=== PATIENT | male | born 1940 | race Caucasian/White ===

== ENCOUNTER 2017-07-30 21:54 | Emergency (ER) | payer MEDICARE, BC | END 2017-07-31 00:01 | disposition home or self-care (01) | LOC: ERS 21:54 | DX: I10 Essential (primary) hypertension (principal); E78.5 Hyperlipidemia, unspecified; Z87.01 Personal history of pneumonia (recurrent) | CPT/HCPCS: 99283 ==

== ENCOUNTER 2017-09-11 13:21 | Outpatient (CLI) | payer MEDICARE, BC ==
[2017-09-11 14:49] LABS: Anion Gap 16 mmol/L (10-20); BUN (Urea Nitrogen) 22 mg/dL (8.4-25.7); Calc. Creatinine Clearance 0 mL/min (70-130); Calcium 9.9 mg/dL (7.8-10.44); Carbon Dioxide 28 mmol/L (23-31); Chloride 99 mmol/L (98-107); Estimated GFR-MDRD 63; Glucose 95 mg/dL (83-110); Sodium 139 mmol/L (136-145)
[2017-09-11 15:01] LABS: Bilirubin Negative (Negative); Blood, Urine Small (Negative); Clarity Clear (Clear); Glucose, Urine (Dipstick) Negative (Negative); Leukocyte Negative (Negative); Nitrite Negative (Negative); Protein, Urine (Dipstick) Negative (Neg-Trace); Specific Gravity, Urine 1.015 (1.005-1.030); Urobilinogen 0.2 mg/dL (0.2-1.0)
[2017-09-11 15:07] LABS: RBC/HPF 0-3 HPF (0-3); Squamous Epithelial 0-3 HPF (0-3); WBC/HPF 0-3 HPF (0-3)
--- NOTE | 2017-09-11 15:52 | CT ---
CT ABDOMEN WITH AND WITHOUT IV CONTRAST: INDICATIONS: History of right renal mass. COMPARISON: 11/07/2016 and 02/20/2017 FINDINGS: The solid mass lesion involving the anterolateral aspect of the right mid kidney has enlarged, now me asuring 2 x 1.7 cm, whereas, on the initial examination, the lesion measured up to 1 x 1.1 cm. There is a stable, 1.7 cm cyst involving the inferior pole of the right kidney. There are multiple small cysts involving the liver. The pancreas, spleen, and adrenal glands are nor mal appearing. There are moderate calcifications involving the abdominal aorta. There is a fat-cont aining periumbilical hernia. There is scattered degenerative and osteoarthritic change. No definite acute osseous abnormality is evident. IMPRESSION: 1. Enlarging solid renal mass lesion of the right kidney. 2. Stable renal cyst and hepatic cyst. POS: [facility]
== END 2017-09-11 13:22 | disposition home or self-care (01) ==
LOC: SCSCT 13:21
PROVIDERS: ATTEND Urology
DX: R31.29 Other microscopic hematuria (principal); N28.1 Cyst of kidney, acquired; N28.89 Other specified disorders of kidney and ureter; K76.89 Other specified diseases of liver
CPT/HCPCS: 36415; 74170; 80048; 81003; 81015; 87086

== ENCOUNTER 2019-10-14 07:11 | Observation (INO) | payer MEDICARE, BC ==
--- NOTE | 2019-10-14 08:14 | RAD ---
XR Chest Pa Lat STANDARD HISTORY: Wheezing COMPARISON: 05/30/2016 FINDINGS: The heart size is at upper limits of normal. The aorta is tortuous. The lungs are well expa nded without focal areas of consolidation, pneumothorax or pleural effusions. IMPRESSION: No radiographic evidence of acute cardiopulmonary process.
[2019-10-14] MEDS ORDERED: Dexamethasone 10 MG/ML VIAL ONE (08:48)
[2019-10-14 10:57] LABS: Bacteria/HPF None Seen HPF (None Seen); Bilirubin Negative (Negative); Blood, Urine 2+ (Negative); Clarity Clear (Clear); Glucose, Urine (Dipstick) Normal (Negative); Leukocyte Negative Leu/uL (Negative); Nitrite Negative (Negative); Protein, Urine (Dipstick) 30 mg/dL (Neg-Trace); RBC/HPF 0-3 HPF (0-3); Squamous Epithelial None Seen HPF (0-3); Urobilinogen Normal mg/dL (Less than 2); WBC/HPF None Seen HPF (0-3)
[2019-10-14 11:56] LABS: Band 8 % (5-11); Hemoglobin 14.8 g/dL (14.0-18.0); Large Platelets MODERATE; Lymphocytes 4 % (21-51); MDiff Complete? YES; Mean Corpuscular HGB CONC 33.5 g/dL (32.0-36.0); Mean Corpuscular Hemoglobin 31.3 pg (27.0-31.0); Mean Corpuscular Volume 93.4 fL (78.0-98.0); Mean Platelet Volume 12.4 fL (7.4-10.4); Monocytes 2 % (0-10); Neutrophil 86 % (42-75); Platelet Clumps MARKED; Platelet Morphology Comment PLT clumps seen-ADEQ; RBC Distribution Width 12.6 % (11.5-14.5); RBC Morphology Normal; Red Blood Cell (RBC) Count 4.74 mill/uL (4.70-6.10); White Blood Cell (WBC) Count 18.2 thou/uL (4.8-10.8)
[2019-10-14 12:21] LABS: CKMB 2.8 ng/mL (0-6.6)
[2019-10-14] MEDS ORDERED: Azithromycin 500 MG VIAL ONE (12:30)
[2019-10-14] MEDS ORDERED: cefTRIAXone\\ROCEPHIN 1 GM VIAL ONE (12:30)
[2019-10-14 12:38] LABS: ALT (SGPT) 19 U/L (8-55); AST (SGOT) 22 U/L (5-34); Albumin 4.5 g/dL (3.4-4.8); Alkaline Phosphatase 83 U/L (40-110); Anion Gap 14 mmol/L (10-20); BUN (Urea Nitrogen) 21 mg/dL (8.4-25.7); Bilirubin, Total 0.7 mg/dL (0.2-1.2); Calc. Creatinine Clearance 0 mL/min (70-130); Calcium 9.6 mg/dL (7.8-10.44); Carbon Dioxide 25 mmol/L (23-31); Chloride 103 mmol/L (98-107); Estimated GFR-MDRD 53; Globulin 2.9 g/dL (2.4-3.5); Glucose 147 mg/dL (83-110); Potassium 4.3 mmol/L (3.5-5.1); Protein, Total 7.4 g/dL (5.8-8.1); Sodium 138 mmol/L (136-145)
--- NOTE | 2019-10-14 13:20 | RAD ---
XR Neck Soft Tissue History: Wheezing Comparison: None. Findings: Prevertebral soft tissues are unremarkable. No radiopaque foreign object. Epiglottis appear s normal as well as the aryepiglottic folds. Impression: Normal appearance of the prevertebral soft tissues.
[2019-10-14 16:15] VITALS: BMI 31.6
[2019-10-14 16:22] LABS: Troponin I 0.112 ng/mL (< 0.028)
[2019-10-14] MEDS ORDERED: Aspirin 81 mg Enteric Coated Tablet PO SCH (17:00)
[2019-10-14 18:00] LABS: #Lymphocytes 0.5 thou/uL (1.20-3.40); #Monocytes 0.2 thou/uL (0.11-0.59); #Neutrophils 14.4 thou/uL (1.40-6.50); %Eosinophils 0.1 % (0.0-10.0); %Lymphocytes 3.3 % (21.0-51.0); %Neutrophils 95.6 % (42.0-75.0); Hemoglobin 14.3 g/dL (14.0-18.0); Mean Corpuscular HGB CONC 33.2 g/dL (32.0-36.0); Mean Corpuscular Hemoglobin 31.5 pg (27.0-31.0); Mean Corpuscular Volume 94.6 fL (78.0-98.0); Mean Platelet Volume 8.8 fL (7.4-10.4); Platelet Count 241 thou/uL (130-400); RBC Distribution Width 12.2 % (11.5-14.5); Red Blood Cell (RBC) Count 4.55 mill/uL (4.70-6.10); White Blood Cell (WBC) Count 15.1 thou/uL (4.8-10.8)
[2019-10-14 18:27] LABS: Troponin I 0.102 ng/mL (< 0.028)
[2019-10-14] MEDS ORDERED: Atorvastatin Calcium 20 MG TAB PO SCH (21:00)
[2019-10-14] MEDS: Amoxicillin/Potassium Clav 875 MG TAB PO SCH (21:32)
[2019-10-15] MEDS ORDERED: Cepastat Lozenges 1 LOZ PO PRN (00:25)
--- NOTE | 2019-10-15 03:34 | HP ---
CHIEF COMPLAINT: Shortness of breath. HISTORY OF PRESENT ILLNESS: Patient is a 79-year-old male, who states that he woke up around 3:00 a.m. today. He felt very short of breath. Patient states that he uses a CPAP machine, which possibly could be causing some of the issues with his shortness of breath. He states that he normally has sinus drainage which has been going on for the past couple of days and he feels that using the CPAP does not help the situation. He states that also he has been having some sore throat for the past couple of days also. He denies any fevers or chills at home. He initially came into the ER. At this time, he was given some steroids and neb treatments. He felt significantly better. He was admitted to the hospital for elevated WBCs and also elevated troponins. PAST MEDICAL HISTORY: Patient has a history of vocal cord paralysis. He stated that he went to the ENT, , and was told that most likely secondary to post flu related. He has history of hypertension. He also has a renal lesion on his right kidney, which he is following up with MD Null. He also has sleep apnea. PAST SURGICAL HISTORY: He has had a colonoscopy and he has had Achilles tendon repair. REVIEW OF SYSTEMS: All negative, except for the ones mentioned above in the HPI. PHYSICAL EXAMINATION: VITAL SIGNS: Temperature 98.2, 70, 134/60, 18, and 94% on room air. GENERAL: He is awake, alert, and oriented x3. Does not appear in distress. CV: S1, S2 present. No murmurs, rubs, or gallops. LUNGS: Clear to auscultation. No rhonchi or wheezes noted. ABDOMEN: Soft and nontender. Bowel sounds are present x2. EXTREMITIES: He does have +1 lower extremity edema. Pedal pulses are present x2. NEUROVASCULAR: No focal deficits noted. SKIN: No cuts, lesions, or bruises noted. SOCIAL HISTORY: He denies any smoking history. Occasional drinking history. No drug use. He is a full code. Lives with his family. FAMILY HISTORY: Mother had of Parkinson's. Father had dementia. ALLERGIES: HE IS ALLERGIC TO CODEINE AND CONTRAST. MEDICATIONS: As of the followin. He is on amlodipine 5 mg daily. 2. Aspirin 81 mg daily. 3. Lipitor 20 mg daily. LABORATORY RESULTS: As of the following; WBCs of 18.2, hemoglobin of 14.8, and his platelets initially was very high with significant amount of clumping. His chemistry; sodium of 138, potassium of 4.3, BUN of 21, and creatinine 1.31. His troponins were mildly elevated at 0.041, 0.112, and 0.102. He also had a soft tissue neck x-ray and a chest x-ray. His chest x-ray did not indicate any acute abnormalities and his soft tissue x-ray indicated no appearance of paravertebral soft tissue. ASSESSMENT AND PLAN: Patient is a very pleasant 79-year-old male, who presents to the hospital with shortness of breath. 1. Sinusitis, possible this could be viral versus bacterial. He states that he has had sinus infections in the past. His shortness of breath was very brief. He woke up in the morning with shortness of breath. He felt that his shortness of breath could be exacerbated with a CPAP since he has been having significant amount of sinus drainage, which has been worsening as he is using the CPAP at night. I will go ahead and put him on antibiotics to cover for sinusitis. We will put him on some steroids and also breathing treatments seem to help him. He states that his voice is a little bit more raspy than usual. We will continue to monitor. 2. Elevated troponins. The patient states he does not have any heart conditions. He does not have shortness of breath or chest pain. EKG did not show any acute ST changes or T wave changes. I have ordered an echocardiogram and patient does not want to stay. He states that he wants to leave tomorrow before noon. 3. Elevated thrombocytosis. This has resolved. He did have significant clumping of the platelets, which was unclear. However, on repeat CBC, it appears to be normal. 4. Acute kidney injury. Patient's previous creatinine appeared to be normal. We will continue to monitor. 5. Deep venous thrombosis prophylaxis. We will put patient on SCDs. Job ID: [id number]
[2019-10-15 04:29] LABS: #Lymphocytes 0.7 thou/uL (1.20-3.40); #Monocytes 1.6 thou/uL (0.11-0.59); #Neutrophils 15.9 thou/uL (1.40-6.50); %Eosinophils 0.2 % (0.0-10.0); %Lymphocytes 3.8 % (21.0-51.0); %Monocytes 8.7 % (0.0-10.0); %Neutrophils 87.4 % (42.0-75.0); Hemoglobin 13.5 g/dL (14.0-18.0); Mean Corpuscular HGB CONC 32.8 g/dL (32.0-36.0); Mean Corpuscular Hemoglobin 31.1 pg (27.0-31.0); Mean Corpuscular Volume 94.9 fL (78.0-98.0); Mean Platelet Volume 9.3 fL (7.4-10.4); Platelet Count 237 thou/uL (130-400); RBC Distribution Width 12.4 % (11.5-14.5); Red Blood Cell (RBC) Count 4.34 mill/uL (4.70-6.10); White Blood Cell (WBC) Count 18.2 thou/uL (4.8-10.8)
[2019-10-15] MEDS ORDERED: predniSONE 20 MG TAB PO SCH (08:00)
[2019-10-15] MEDS ORDERED: Aspirin 81 mg Enteric Coated Tablet PO SCH (09:00)
[2019-10-15] MEDS ORDERED: Hydrochlorothiazide 25 MG TAB PO SCH (09:00)
[2019-10-15] MEDS ORDERED: Losartan 25 MG TAB PO SCH (09:00)
[2019-10-15] MEDS ORDERED: Enoxaparin Sodium 40 MG/0.4 ML SYRINGE SC SCH (09:00)
[2019-10-15 09:23] LABS: Anion Gap 18 mmol/L (10-20); BUN (Urea Nitrogen) 29 mg/dL (8.4-25.7); Calc. Creatinine Clearance 62 mL/min (70-130); Calcium 9.4 mg/dL (7.8-10.44); Carbon Dioxide 25 mmol/L (23-31); Chloride 102 mmol/L (98-107); Estimated GFR-MDRD 46; Glucose 128 mg/dL (83-110); Potassium 4.2 mmol/L (3.5-5.1); Sodium 141 mmol/L (136-145)
[2019-10-15 09:44] VITALS: BP 126/58; TEMP 97.7
[2019-10-15] MEDS: Amoxicillin/Potassium Clav 875 MG TAB PO SCH (09:45)
--- NOTE | 2019-10-16 03:38 | DIS ---
DATE OF ADMISSION: 10/14/2019 DATE OF DISCHARGE: 10/15/2019 PRIMARY CARE PROVIDER: Dr. Mi Somers. DISCHARGE DIAGNOSES: 1. Sinusitis. 2. Acute kidney injury. 3. Reactive airway disease. 4. Owv-AN-ietsbwvrr myocardial infarction type 2, secondary to sinusitis and reactive airway disease. HOSPITAL COURSE: Mr. Mitchell is a pleasant 79-year-old gentleman, who was admitted to [facility] on 10/14/2019, for sinusitis and acute kidney injury. Please refer to Dr. Smith's history and physical note dated 10/14/2019, for further details. He improved with Augmentin and prednisone. He wished to go home by noon on 10/15/2019. His creatinine increased to 1.49 on 10/14. He has been advised to discontinue losartan and to follow up with primary care provider as to when to resume it. He has an appointment with primary care provider on 10/16/2019, and will follow up with primary care provider. He had mildly elevated troponins, but no chest pain. 2D echocardiogram was done and the result is pending at the time of this dictation. The patient does not wish to stay in the hospital for the 2D echocardiogram report. He has been advised to follow up with his primary care provider for the report and with his account technician, Dr. Ayoub regarding the elevated troponins in case further workup is warranted. On the day of discharge, he has sodium 141, potassium 4.2, blood urea nitrogen 29, and creatinine 1.49. White count is 18,200, hemoglobin 13.5, and platelet count 237. DISCHARGE MEDICATIONS: 1. Aspirin 81 mg daily. 2. Lipitor 20 mg at bedtime. 3. Hydrochlorothiazide 25 mg daily. 4. Augmentin 875 mg 2 times a day for 1 week. 5. Prednisone 40 mg daily for 4 more days. ACTIVITY: No restrictions. DIET: Heart healthy. DISCHARGE DESTINATION: Home. POST-ACUTE CARE FOLLOWUP: With primary care provider in 1 day and with his account technician in 1 week. Job ID: [id number]
== END 2019-10-15 11:10 | disposition home or self-care (01) ==
LOC: ERS 07:11 → ERHOLD 13:56 → 2NO 15:54
PROVIDERS: ADMIT Internal Medicine; ATTEND Internal Medicine
DX: J32.9 Chronic sinusitis, unspecified (principal); N17.9 Acute kidney failure, unspecified; I21.A1 Myocardial infarction type 2; J45.909 Unspecified asthma, uncomplicated; D47.3 Essential (hemorrhagic) thrombocythemia; R79.89 Other specified abnormal findings of blood chemistry; Z79.82 Long term (current) use of aspirin; Z79.899 Other long term (current) drug therapy; Z98.890 Other specified postprocedural states; Z88.5 Allergy status to narcotic agent; Z91.041 Radiographic dye allergy status
CPT/HCPCS: 70360; 71046; 80048; 80053; 82553; 83880; 84484 ×2; 85025 ×3; 87040; 87633; 87798 ×2; 93005; 93306; 94640 ×2; 96365; 96367; 96372; 99285; G0378 ×3; 36415; 81003; 81015; 93010; J0456; J0696; J1100; J7512; J7620

== ENCOUNTER 2019-10-21 17:15 | Inpatient (IN) | payer MEDICARE, BC ==
[2019-10-21 18:35] LABS: Hemoglobin 15.3 g/dL (14.0-18.0); Mean Corpuscular HGB CONC 33.1 g/dL (32.0-36.0); Mean Corpuscular Hemoglobin 31.4 pg (27.0-31.0); Mean Corpuscular Volume 94.8 fL (78.0-98.0); Mean Platelet Volume 9.1 fL (7.4-10.4); Platelet Count 249 thou/uL (130-400); RBC Distribution Width 12.3 % (11.5-14.5); Red Blood Cell (RBC) Count 4.86 mill/uL (4.70-6.10); White Blood Cell (WBC) Count 27.5 thou/uL (4.8-10.8)
--- NOTE | 2019-10-21 18:48 | RAD ---
TWO VIEW CHEST: Indications: Cough Comparison: 10-14-2019 FINDINGS: There are bibasilar infiltrates, slightly more extensive in the left lower lobe, best seen through th e cardiac silhouette on the frontal view. Right medial base infiltrate also noted on the frontal view . Upper lung zones are clear. Vascular markings normal. Heart and mediastinum unremarkable. IMPRESSION: Bibasilar infiltrates, more prominent on the left. POS: [facility]
[2019-10-21 18:50] LABS: ALT (SGPT) 26 U/L (8-55); AST (SGOT) 20 U/L (5-34); Albumin 3.8 g/dL (3.4-4.8); Alkaline Phosphatase 62 U/L (40-110); Anion Gap 10 mmol/L (10-20); BUN (Urea Nitrogen) 25 mg/dL (8.4-25.7); Bilirubin, Total 1.2 mg/dL (0.2-1.2); Calc. Creatinine Clearance 0 mL/min (70-130); Calcium 9.6 mg/dL (7.8-10.44); Carbon Dioxide 31 mmol/L (23-31); Chloride 99 mmol/L (98-107); Estimated GFR-MDRD 53; Globulin 2.9 g/dL (2.4-3.5); Glucose 111 mg/dL (83-110); Potassium 3.9 mmol/L (3.5-5.1); Protein, Total 6.7 g/dL (5.8-8.1); Sodium 136 mmol/L (136-145)
[2019-10-21 18:58] LABS: Band 45 % (5-11); Lymphocytes 1 % (21-51); MDiff Complete? YES; Monocytes 7 % (0-10); Neutrophil 45 % (42-75); Platelet Morphology Comment Appears Adequate; Polychromasia SLIGHT = 2-3 cells (100X) (0-2/hpf); Reactive Lymphocytes 2 % (0-10)
[2019-10-21 19:12] LABS: CKMB 4.4 ng/mL (0-6.6)
[2019-10-21] MEDS ORDERED: Azithromycin 500 MG VIAL ONE (19:38)
[2019-10-21] MEDS ORDERED: cefTRIAXone\\ROCEPHIN 2 GM VIAL ONE (19:38)
[2019-10-21] MEDS ORDERED: Benzonatate 100 MG CAP ONE (20:39)
[2019-10-21 22:02] LABS: Troponin I 0.119 ng/mL (< 0.028)
[2019-10-21 22:13] LABS: Bacteria/HPF None Seen HPF (None Seen); Bilirubin Negative (Negative); Blood, Urine 1+ (Negative); Clarity Clear (Clear); Glucose, Urine (Dipstick) Normal (Negative); Leukocyte Negative Leu/uL (Negative); Nitrite Negative (Negative); Protein, Urine (Dipstick) 20 mg/dL (Neg-Trace); RBC/HPF 0-3 HPF (0-3); Squamous Epithelial None Seen HPF (0-3); Urobilinogen Normal mg/dL (Less than 2); WBC/HPF 0-3 HPF (0-3)
[2019-10-21] MEDS ORDERED: Ondansetron ODT 4 MG TAB PO PRN (23:11)
[2019-10-21] MEDS ORDERED: hydrALAZINE 20 MG/ML VIAL SLOW IVP PRN (23:11)
[2019-10-21] MEDS ORDERED: Acetaminophen 325 MG TAB PO PRN (23:11)
[2019-10-21] MEDS ORDERED: Benzonatate 100 MG CAP PO PRN (23:11)
[2019-10-21] MEDS ORDERED: Acetaminophen 325 MG TAB ONE (23:30)
[2019-10-22 01:11] LABS: Troponin I 0.168 ng/mL (< 0.028)
--- NOTE | 2019-10-22 01:37 | HP ---
PRIMARY CARE PHYSICIAN: Dr. Somers. CHIEF COMPLAINT: Cough and not feeling well. HISTORY OF PRESENT ILLNESS: Mr. Mitchell is a pleasant 79-year-old gentleman, who recently started having some cough and shortness of breath. This was about a week ago on Monday. At that time, he had seen his primary care physician who had prescribed him Augmentin. However, he ended up in the hospital in the interim where he had some chest pain and apparently had a day of the Augmentin prior to coming to the hospital. He was in the hospital for just 1 day. He started feeling better and had approximately 2 more days of the antibiotics, went home feeling well. Apparently, he lost the pills and was not able to finish the antibiotics, but a day after leaving the hospital on Monday and Monday, he started not feeling well again. He started coughing a lot and started having phlegm productive of some creamy like color. He started feeling short of breath again, but no nausea, no vomiting. No fever that he knows of at home. There has been no foreign travel or any sick contacts. He does have vocal cord paralysis, which he says he has been living with since 1967. He is not sure, if he has any difficulty swallowing, but his voice is audibly raspy and at times he will have to breathe deeply in order to speak. He tells me he has had no formal speech evaluation that he is aware of. REVIEW OF SYSTEMS: All systems were reviewed and are negative except for that mentioned in the history of present illness. PAST MEDICAL HISTORY: Significant for vocal cord paralysis, hypertension, a right kidney lesion that is being followed at [facility], and elevated cholesterol. PAST SURGICAL HISTORY: He has had a colonoscopy, Achilles tendon repair. ALLERGIES: TO CODEINE, IODINE AND CONTRAST. SOCIAL HISTORY: He is for 57 years. Code status is full code. He is a nonsmoker. He occasionally drinks. FAMILY HISTORY: Significant for Parkinson's in his mother and father who had dementia. CURRENT MEDICATIONS: Include: 1. Amlodipine 5 mg daily. 2. Aspirin 81 mg daily. 3. Lipitor 20 mg daily. 4. Losartan/hydrochlorothiazide 100/12.5 daily. PHYSICAL EXAMINATION: GENERAL: He is alert and oriented. He appears to be in no acute distress. He is sitting up on the stretcher. He is well developed and well nourished. VITAL SIGNS: Blood pressure was 136/72, heart rate 75, respiratory rate of 20, temperature was 99.1. HEENT: Pupils are equal, round, and reactive. Extraocular muscles are intact. Sclerae anicteric. Throat, no erythema, no exudates. NECK: No adenopathy, no bruits. LUNGS: He has bilateral wheezing and rhonchi and some decreased breath sounds at the bases. CARDIOVASCULAR: He has a normal S1 and S2. There is no S3 or S4. He does have an occasional PVC. No murmurs or rubs. ABDOMEN: Soft, nontender, and nondistended. Positive for bowel sounds. No rebound or guarding. EXTREMITIES: He has pedal edema to about a quarter the way up his calf. No calf tenderness. No joint effusions. NEUROLOGIC: The exam is grossly nonfocal. SKIN AND INTEGUMENT: There are no skin changes. No rash. He does have some chronic venous stasis changes however. LABORATORY DATA: The white blood cell count is 27.5, the hemoglobin is 15.3, hematocrit is 46.1, and platelet count is 249. Sodium 136, potassium 3.9, chloride , CO2 is 31, BUN of 25, creatinine 1.32, glucose is 111. Troponin is 0.159. Urinalysis is essentially negative. IMAGING: On his chest x-ray, the heart size is borderline. He does have bilateral basilar infiltrates that is by my reading on his EKG. He is sinus, the rate is 69. He has poor R-wave progression in V1 and V2, Q-wave in lead III. ASSESSMENT: This is a pleasant 79-year-old gentleman, who presents with cough and shortness of breath. He was also hypoxic and required supplemental oxygen in the ER, which is not usual for him. He has a vocal cord paralysis and it appears as if this problem has been off and on for the past week or longer. I suspect he could potentially have difficulty with swallowing and this could possibly be an aspiration pneumonia. He will be admitted to the [facility] due to the bilateral nature of the pneumonia. We will start him on IV Zosyn as well as vancomycin. We will consult speech therapy and place him on supplemental oxygen and DuoNebs as needed. 1. Hypertension. We will reconcile and restart his home medications. 2. The patient will be placed on deep venous thrombosis and gastrointestinal prophylaxis. 3. Elevated troponin. I suspect this is demand related. He had a recent stress test and has recently been evaluated by Cardiology and his stress test was normal. The echo results were noted. It did demonstrate that he did have some diastolic dysfunction. Job ID: [id number]
[2019-10-22] MEDS: Piperacillin/Tazobactam 3.375 GM in Sodium Chloride 0.9% 100 ML IVPB SCH ×4 (02:43→20:41)
[2019-10-22] MEDS: Vancomycin 1 GM in Premix Bag 1 BAG IVPB SCH ×2 (03:13→14:43)
[2019-10-22 04:38] LABS: Anion Gap 14 mmol/L (10-20); BUN (Urea Nitrogen) 27 mg/dL (8.4-25.7); Calc. Creatinine Clearance 68 mL/min (70-130); Calcium 8.9 mg/dL (7.8-10.44); Carbon Dioxide 27 mmol/L (23-31); Chloride 101 mmol/L (98-107); Estimated GFR-MDRD 52; Glucose 123 mg/dL (83-110); Sodium 138 mmol/L (136-145)
[2019-10-22 05:43] LABS: Band 43 % (5-11); Hemoglobin 13.8 g/dL (14.0-18.0); Lymphocytes 1 % (21-51); MDiff Complete? YES; Mean Corpuscular HGB CONC 32.2 g/dL (32.0-36.0); Mean Corpuscular Hemoglobin 30.8 pg (27.0-31.0); Mean Corpuscular Volume 95.5 fL (78.0-98.0); Mean Platelet Volume 9.2 fL (7.4-10.4); Monocytes 4 % (0-10); Neutrophil 52 % (42-75); Platelet Count 201 thou/uL (130-400); RBC Distribution Width 12.4 % (11.5-14.5); Red Blood Cell (RBC) Count 4.48 mill/uL (4.70-6.10); White Blood Cell (WBC) Count 28.5 thou/uL (4.8-10.8)
[2019-10-22] MEDS: Enoxaparin Sodium 40 MG/0.4 ML SYRINGE SC SCH (09:25)
[2019-10-22] MEDS: Aspirin Chewable 81 MG TAB PO SCH (09:26)
[2019-10-22] MEDS: Famotidine 20 MG TAB PO SCH ×2 (09:26→20:42)
[2019-10-22] MEDS: Losartan 25 MG TAB PO SCH (09:27)
--- NOTE | 2019-10-22 14:25 | CT ---
CT OF THE THORAX WITHOUT IV CONTRAST INDICATION: History of bilateral pneumonia and history of chronic aspiration COMPARISON: CT the abdomen dated September 11, 2017 FINDINGS: LUNGS: There is bibasilar airspace consolidation, left greater than right. There is mild airspace con solidation within the medial right middle lobe. Mild subsegmental volume loss is seen within the lingula. Small pulmonary cyst is seen within this right upper lobe measuring 1.2 cm. Pleural spaces: Clear Lymph nodes: No pathologically enlarged lymph nodes. Heart and great vessels: There are coronary artery and thoracic aortic calcifications Upper abdomen: There is a small hiatal hernia. There are small cysts seen within the liver. There is a small gallstone within the gallbladder neck. Osseous structures: No acute osseous abnormality. IMPRESSION: 1. Bibasilar airspace consolidation, left greater than right. Airspace consolidation is present withi n both lower lobes as well as within the medial right middle lobe. Certainly this can be seen with an aspiration pneumonitis; however, multifocal pneumonia is favored. 2. Small hiatal hernia. 3. Hepatic cysts 4. Cholelithiasis
[2019-10-22] MEDS ORDERED: Fluconazole 100 MG TAB PO SCH (14:30)
[2019-10-22] MEDS ORDERED: Furosemide 40 MG/4 ML VIAL SLOW IVP SCH (14:30)
--- NOTE | 2019-10-22 15:01 | CON ---
DATE OF CONSULTATION: 10/22/2019 SERVICE: Pulmonary Medicine. REASON FOR CONSULTATION: IMCU patient. HISTORY OF PRESENT ILLNESS: The patient is a very pleasant 79-year-old white male with past medical history significant for bilateral vocal cord paralysis, and oropharyngeal dysphagia with proven aspiration with multiple consistencies. He likes having a diet, does not modify his diet when he gets home. He was recently in the hospital with a community-acquired pneumonia. He was placed on some antibiotics and had a significant improvement in symptoms over a period of 3 to 4 days. He was discharged in his usual state of health, but over a period of 24 hours after getting home, he started having increasing difficulty breathing. He has sleep apnea and uses CPAP machine. He started coughing up increasing amounts of aponte and yellow phlegm. He returned to the Emergency Department for additional evaluation and studies. Overnight, he feels much improved. He denies any fevers, chills, nausea, or vomiting at this moment. ASSESSMENT: 1. Hypertension. 2. Dyslipidemia. 3. Vocal cord paralysis, bilateral. 4. Kidney lesion, followed with serial CT scans. PAST SURGICAL HISTORY: 1. Colonoscopy. 2. Achilles tendon repair. SOCIAL HISTORY: Negative for alcohol, tobacco, or illicit drug use. He is a lifelong nonsmoker. He has no exposure to chemicals, dust, asbestos, or tuberculosis. FAMILY HISTORY: Noncontributory. ALLERGIES: CODEINE, IODINE CONTRAST. MEDICATIONS: List of his inpatient medications was reviewed. REVIEW OF SYSTEMS: General, head, ears, eyes, nose, throat, cardiovascular, respiratory, GI, , musculoskeletal, neurologic, and skin are negative except as mentioned in the HPI. PHYSICAL EXAMINATION: VITAL SIGNS: Afebrile, pulse 70, blood pressure is 109/45, respirations 22, and saturation 95%, on 3 L nasal cannula. GENERAL: The patient is awake and alert, in no apparent distress. LUNGS: Rhonchi and crackles are present throughout bilateral lung canseco. There is no prolonged expiratory phase or wheezing appreciated. HEART: Normal rate. Regular. ABDOMEN: Soft, nontender, and nondistended. Bowel sounds are positive. MUSCULOSKELETAL: No cyanosis or clubbing. There is no pitting in the bilateral lower extremities. NEUROLOGIC: Grossly nonfocal. LABORATORY DATA: WBC 28.5, hemoglobin 13.8, and platelets 201,000. Creatinine 1.34, which is at baseline. Basic metabolic profile and liver function studies are unremarkable otherwise. Cardiac enzyme is gently uptrending to 0.168. All troponins that have been obtained over the past several weeks have been abnormal. Procalcitonin 0.04. Urinalysis is completely unremarkable from yesterday. Respiratory virus panel, blood cultures x4 are negative. Sputum culture from the 13th was unremarkable, many white blood cells were seen, but there were few gram positive cocci in pairs and in clusters. That being said, it was only noted to be normal respiratory gretchen. IMAGING: Chest x-ray demonstrates bilateral infiltrates. It is likely in the right middle lobe, and left lower lobe. ASSESSMENT: 1. Acute hypoxic respiratory failure. 2. Healthcare-associated pneumonia. 3. Chronic aspiration related lung diseases. DISCUSSION AND PLAN: I will go ahead and add antifungal coverage ad we will try to collect another sputum sample for Gram stain and culture. Hopefully, we will be able to identify any fungal disease that could possibly be there as well. He would be at risk of having this type of a problem. I have asked for him to undergo a modified barium swallow. We are also going to get a CT of the chest. If there is structural lung disease, and his modified barium swallow is abnormal, we are going to broach the subject of moving forward with a percutaneous endoscopic gastrostomy tube to prevent future damage to the lung. Critical Care will continue to follow along. 70 minutes have been devoted to this patient in various activities. I personally reviewed all imaging studies and laboratory data noted within this document. For fifty percent of this time, I was interacting with the patient at the bedside or coordinating care with the care team. For the remainder of the time I was immediately available to the patient in the hospital unit. Job ID: [id number] [facility]
--- NOTE | 2019-10-22 18:59 | PDOC.HOSPP ---
- Subjective Encounter Date: 10/22/19 Encounter Time: 18:45 Subjective: f/u for HCAP and chronic aspiration due to bilateral vocal cord paralysis. Receiving Fluconazole/Zosyn/Vancomycin. - Objective Vital Signs & Weight: Vital Signs (12 hours) Temp Pulse Resp Pulse Ox 10/22/19 16:00 98.5 F 10/22/19 14:39 68 16 98 10/22/19 11:56 98.6 F 10/22/19 08:00 98 10/22/19 07:38 98.7 F Weight Weight 230 lb I&O: 10/21/19 10/22/19 10/23/19 06:59 06:59 06:59 Intake Total 320 1010 Output Total 510 900 Balance -190 110 Result Diagrams: 10/22/19 03:47 10/22/19 03:47 Additional Labs: Laboratory Tests 10/21/19 10/21/19 10/21/19 18:17 18:17 18:18 WBC 27.5 H Neutrophils % (Manual) 45 Band Neuts % (Manual) 45 H BUN Creatinine Lactic Acid 1.1 Troponin I 0.159 H 10/21/19 10/21/19 10/22/19 18:18 21:36 00:39 WBC Neutrophils % (Manual) Band Neuts % (Manual) BUN 25 Creatinine 1.32 H Lactic Acid Troponin I 0.119 H 0.168 H 10/22/19 03:47 WBC Neutrophils % (Manual) 52 Band Neuts % (Manual) 43 H BUN Creatinine Lactic Acid Troponin I Radiology Reviewed by me: Yes (CT chest - + aspiration pneumonitis) EKG Reviewed by me: Yes (Tele - SR) Hospitalist ROS - Medication Medications: Active Medications Generic Name Dose Route Start Last Admin Trade Name Freq PRN Reason Stop Dose Admin Albuterol/Ipratropium 3 ml 10/22/19 01:00 10/22/19 14:39 Duoneb NEB 3 ml [id number] ABRAHAM Administration Aspirin 81 mg 10/22/19 09:00 10/22/19 09:26 Aspirin Chewable PO 81 mg DAILY ABRAHAM Administration Enoxaparin Sodium 40 mg 10/22/19 09:00 10/22/19 09:25 Lovenox SC 40 mg 0900 ABRAHAM Administration Famotidine 20 mg 10/22/19 09:00 03/17/20 09:26 Pepcid PO 20 mg BID ABRAHAM Administration Piperacillin Sod/Tazobactam 100 mls @ 200 mls/hr 10/22/19 03:00 10/22/19 14: 44 Sod 3.375 gm/ Sodium Chloride IVPB 100 mls 0300,0900,1500,2100 ABRAHAM Administration Vancomycin HCl 1 gm/ Device 200 mls @ 200 mls/hr 10/22/19 03:00 10/22/19 14: 43 IVPB 200 mls 0300,1500 ABRAHAM Administration Losartan Potassium 100 mg 10/22/19 09:00 10/22/19 09:27 Cozaar PO 100 mg DAILY ABRAHAM Administration - Exam General Appearance: NAD, awake alert Eye: PERRL, anicteric sclera ENT: normocephalic atraumatic, no oropharyngeal lesions Neck: supple, symmetric, no JVD, no thyromegaly Heart: RRR, no murmur, no gallops, no rubs, normal peripheral pulses Respiratory - other findings: Coarse sounds and rales bilat Gastrointestinal: soft, non-tender, non-distended, normal bowel sounds, no palpable masses Extremities: no cyanosis, no clubbing, no edema Skin: normal turgor, no lesions Neurological: no new deficit Musculoskeletal: normal tone, normal strength, no muscle wasting Psychiatric: normal affect, A&O x 3 Hosp A/P (1) Acute respiratory failure with hypoxia Code(s): J96.01 - ACUTE RESPIRATORY FAILURE WITH HYPOXIA Status: Acute Plan: Secondary to #2, continue pulmonary supportive mgmt, see below (2) Aspiration pneumonia Code(s): J69.0 - PNEUMONITIS DUE TO INHALATION OF FOOD AND VOMIT Status: Acute Qualifiers: Laterality: bilateral Plan: Likely chronic aspiration due to bilateral vocal cord paralysis, continue Zosyn/ Vanc/Fluconazole (3) Hypertension Code(s): I10 - ESSENTIAL (PRIMARY) HYPERTENSION Status: Chronic Qualifiers: Hypertension type: essential hypertension Qualified Code(s): I10 - Essential (primary) hypertension Plan: Continue home BP regimen, serial monitoring (4) Vocal cord paralysis Code(s): J38.00 - PARALYSIS OF VOCAL CORDS AND LARYNX, UNSPECIFIED Status: Chronic Plan: ST for evaluation and monitoring - Plan continue antibiotics, PT/OT, vp [employer] social media and crm, speech therapy, respiratory therapy, out of bed/ambulate, DVT proph w/SCDs Stable currently Continue Vanc/Zosyn/Fluconazole MBS in am OOB/ambulate AM lab: BMP, CBC
[2019-10-22] MEDS: Atorvastatin Calcium 10 MG TAB PO SCH (20:42)
[2019-10-23] MEDS: Piperacillin/Tazobactam 3.375 GM in Sodium Chloride 0.9% 100 ML IVPB SCH ×4 (04:30→20:43)
[2019-10-23 05:03] LABS: Anion Gap 13 mmol/L (10-20); BUN (Urea Nitrogen) 29 mg/dL (8.4-25.7); Calc. Creatinine Clearance 55 mL/min (70-130); Calcium 8.8 mg/dL (7.8-10.44); Carbon Dioxide 30 mmol/L (23-31); Chloride 99 mmol/L (98-107); Estimated GFR-MDRD 41; Glucose 100 mg/dL (83-110); Potassium 3.9 mmol/L (3.5-5.1); Sodium 138 mmol/L (136-145)
[2019-10-23 05:18] LABS: Band 15 % (5-11); Eosinophils 1 % (0-10); Lymphocytes 7 % (21-51); MDiff Complete? YES; Mean Corpuscular HGB CONC 32.8 g/dL (32.0-36.0); Mean Corpuscular Volume 94.6 fL (78.0-98.0); Mean Platelet Volume 9.9 fL (7.4-10.4); Monocytes 2 % (0-10); Neutrophil 75 % (42-75); Platelet Count 161 thou/uL (130-400); RBC Distribution Width 12.4 % (11.5-14.5); Red Blood Cell (RBC) Count 4.18 mill/uL (4.70-6.10)
[2019-10-23] MEDS: Vancomycin 1 GM in Premix Bag 1 BAG IVPB SCH ×2 (05:25→14:26)
[2019-10-23] MEDS: Famotidine 20 MG TAB PO SCH ×2 (08:21→20:44)
[2019-10-23] MEDS: Losartan 25 MG TAB PO SCH (08:21)
[2019-10-23] MEDS: Aspirin Chewable 81 MG TAB PO SCH (08:21)
[2019-10-23] MEDS: Fluconazole 100 MG TAB PO SCH (08:22)
[2019-10-23] MEDS: Hydrochlorothiazide 25 MG TAB PO SCH (08:22)
[2019-10-23] MEDS: Enoxaparin Sodium 40 MG/0.4 ML SYRINGE SC SCH (08:22)
[2019-10-23] MEDS: Cholecalciferol (Vitamin D3) 400 UNITS TAB PO SCH (08:22)
--- NOTE | 2019-10-23 09:15 | PDOC.HOSPP ---
- Subjective Encounter Date: 10/23/19 Encounter Time: 09:05 Subjective: f/u for PNA and ? aspiration component. Receiving Zosyn/Vanc/Fluconazole. States feeling ok overall and no fever. Scheduled for MBS this am. - Objective Vital Signs & Weight: Vital Signs (12 hours) Temp Pulse Resp BP BP Pulse Ox 10/23/19 07:33 98.7 F 76 18 138/65 98 10/23/19 06:42 98 10/23/19 06:40 69 16 98 10/23/19 04:00 98.4 F 56 L 16 140/63 92 L 10/23/19 00:58 75 18 100 Weight Weight 230 lb Most Recent Monitor Data Heart Rate from ECG 73 NIBP 107/50 NIBP BP-Mean 69 Respiration from ECG 17 SpO2 99 I&O: 10/22/19 10/23/19 10/24/19 06:59 06:59 06:59 Intake Total 320 1790 Output Total 510 900 Balance -190 890 Result Diagrams: 10/23/19 04:24 10/23/19 04:24 Additional Labs: Laboratory Tests 10/21/19 10/21/19 10/21/19 18:17 18:17 18:18 WBC 27.5 H Neutrophils % (Manual) 45 Band Neuts % (Manual) 45 H BUN Creatinine Lactic Acid 1.1 Troponin I 0.159 H 10/21/19 10/21/19 10/22/19 18:18 21:36 00:39 WBC Neutrophils % (Manual) Band Neuts % (Manual) BUN 25 Creatinine 1.32 H Lactic Acid Troponin I 0.119 H 0.168 H 10/22/19 03:47 WBC Neutrophils % (Manual) 52 Band Neuts % (Manual) 43 H BUN Creatinine Lactic Acid Troponin I EKG Reviewed by me: Yes (Tele - SR) Hospitalist ROS - Medication Medications: Active Medications Generic Name Dose Route Start Last Admin Trade Name Freq PRN Reason Stop Dose Admin Albuterol/Ipratropium 3 ml 10/22/19 01:00 10/23/19 06:40 Duoneb NEB 3 ml [id number] ABRAHAM Administration Aspirin 81 mg 10/22/19 09:00 10/23/19 08:21 Aspirin Chewable PO 81 mg DAILY ABRAHAM Administration Atorvastatin Calcium 10 mg 10/22/19 21:00 10/22/19 20:42 Lipitor PO 10 mg HS ABRAHAM Administration Cholecalciferol 400 units 10/23/19 09:00 10/23/19 08:22 Vitamin D PO 400 units DAILY ABRAHAM Administration Enoxaparin Sodium 40 mg 10/22/19 09:00 10/23/19 08:22 Lovenox SC 40 mg 0900 ABRAHAM Administration Famotidine 20 mg 10/22/19 09:00 10/23/19 08:21 Pepcid PO 20 mg BID ABRAHAM Administration Fluconazole 100 mg 10/23/19 09:00 10/23/19 08:22 Diflucan PO 10/30/19 09:01 100 mg DAILY ABRAHAM Administration Hydrochlorothiazide 25 mg 10/23/19 09:00 10/23/19 08:22 Hydrochlorothiazide PO 25 mg DAILY ABRAHAM Administration Piperacillin Sod/Tazobactam 100 mls @ 200 mls/hr 10/22/19 03:00 10/23/19 08: 25 Sod 3.375 gm/ Sodium Chloride IVPB 100 mls 0300,0900,1500,2100 ABRAHAM Administration Vancomycin HCl 1 gm/ Device 200 mls @ 200 mls/hr 10/22/19 03:00 10/23/19 05: 25 IVPB 200 mls 0300,1500 ABRAHAM Administration Losartan Potassium 100 mg 10/22/19 09:00 10/23/19 08:21 Cozaar PO 100 mg DAILY ABRAHAM Administration Sodium Chloride 10 ml 10/23/19 09:00 10/23/19 08:25 Flush - Normal Saline IVF 10 ml Q12HR ABRAHAM Administration - Exam General Appearance: NAD, awake alert Eye: PERRL, anicteric sclera ENT: normocephalic atraumatic, no oropharyngeal lesions Neck: supple, symmetric, no JVD, no thyromegaly Heart: RRR, no gallops, no rubs, normal peripheral pulses Heart - other findings: S1, S2 Respiratory - other findings: scattered rhonchi Gastrointestinal: soft, non-tender, non-distended, normal bowel sounds, no palpable masses Extremities: no cyanosis, no clubbing, no edema Skin: normal turgor, no lesions Neurological: cranial nerve grossly intact, no new deficit Musculoskeletal: normal tone, normal strength, no muscle wasting Psychiatric: normal affect, A&O x 3 Hosp A/P (1) Acute respiratory failure with hypoxia Code(s): J96.01 - ACUTE RESPIRATORY FAILURE WITH HYPOXIA Status: Acute Plan: Resolving, supportive mgmt as outlined below (2) Aspiration pneumonia Code(s): J69.0 - PNEUMONITIS DUE TO INHALATION OF FOOD AND VOMIT Status: Acute Qualifiers: Laterality: bilateral Plan: Suspected component of presentation, MBS today, continue Zosyn/Vanc/Fluconazole another 24h then de-escalate (3) Hypertension Code(s): I10 - ESSENTIAL (PRIMARY) HYPERTENSION Status: Chronic Qualifiers: Hypertension type: essential hypertension Qualified Code(s): I10 - Essential (primary) hypertension (4) 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
--- NOTE | 2019-10-23 13:19 | PRG ---
DATE OF SERVICE: 10/23/2019 SERVICE: Pulmonary Medicine. INTERVAL HISTORY: The patient is doing really well from respiratory standpoint. He indicates making significant recovery over the last 24 hours. He denies any current chest discomfort, fevers, or chills. He still brings up what he calls aponte phlegm. That being said, he brought a glob of it up for me and it is a bright yellow color. PHYSICAL EXAMINATION: VITAL SIGNS: Afebrile. Pulse 68, blood pressure 118/58, respirations 18, saturation 94% on room air. GENERAL: The patient is awake and alert, in no apparent distress. LUNGS: Wonderful air entry with no prolonged expiratory phase or wheezing present. HEART: Normal rate, regular. ABDOMEN: Soft, nontender, and nondistended. Bowel sounds are positive. MUSCULOSKELETAL: No cyanosis or clubbing. There is no pitting in the bilateral lower extremities. NEUROLOGIC: Grossly nonfocal. LABORATORY DATA: WBC has beautifully improved to 15.0, hemoglobin 13.0, platelets 161,000. Band count 15, which has dramatically improved. Creatinine 1.65, which is gently up trending. Basic metabolic profile is otherwise unremarkable. Troponin 0.168. Urinalysis is negative. Blood cultures x2 and urine culture are negative. ASSESSMENT: 1. Acute hypoxic respiratory failure. 2. Healthcare-associated pneumonia. 3. Chronic aspiration related lung disease, suspected. DISCUSSION AND PLAN: The CT of the chest did not show any structural lung disease, which is reassuring. He has a bland pneumonia, which is fairly dense in the left lower lobe and smaller in the right lower lobe. We will continue his current antibiotic regimen as he is improving dramatically. Because of the nature of the sputum, we will go ahead and get Gram stain and culture of the sputum. We will move forward with modified barium swallow. If he has any significant dysphagia, modifications to his diet will be made, and we will set him up with Speech Pathology in the outpatient basis. If he cannot improve and has significant aspiration associated with the swallowing various foods, he may be a candidate for a PEG tube at some point in the future. In the meantime, he will make certain to elevate head of bed and avoid p.o. within 2 hours going to sleep for the rest of his life. Additionally, I have counseled on the use of chinstrap with a CPAP equipment. Pulmonary will continue to follow. Job ID: [id number]
--- NOTE | 2019-10-23 14:37 | RAD ---
Exam: Modified barium swallow, the presence speech pathologist HISTORY: Dysphagia, unspecified. Feeding difficulties COMPARISON: None Exposure: 1.6 minutes, 0.88 gonzales per centimeter square FINDINGS: In the presence of a speech pathologist, the patient was administered thin liquid, puree, m echanical soft and regular consistencies There is evidence of penetration with the thin liquid consistency. There is premature spillage and po oling the vallecula and piriform sinuses. IMPRESSION: Penetration with thin liquid consistency. Refer to speech pathologist report for feeding recommendation
[2019-10-23] MEDS: Atorvastatin Calcium 10 MG TAB PO SCH (20:44)
[2019-10-24] MEDS: Piperacillin/Tazobactam 3.375 GM in Sodium Chloride 0.9% 100 ML IVPB SCH ×4 (02:20→21:18)
[2019-10-24 02:51] LABS: Vancomycin, Trough 18.1 ug/mL
[2019-10-24] MEDS: Vancomycin 1 GM in Premix Bag 1 BAG IVPB SCH ×2 (03:15→15:17)
[2019-10-24 05:16] LABS: Anion Gap 11 mmol/L (10-20); BUN (Urea Nitrogen) 24 mg/dL (8.4-25.7); Calc. Creatinine Clearance 62 mL/min (70-130); Calcium 8.4 mg/dL (7.8-10.44); Carbon Dioxide 27 mmol/L (23-31); Chloride 101 mmol/L (98-107); Estimated GFR-MDRD 46; Glucose 130 mg/dL (83-110); Potassium 3.4 mmol/L (3.5-5.1); Sodium 136 mmol/L (136-145)
[2019-10-24 05:56] LABS: Band 9 % (5-11); Lymphocytes 11 % (21-51); MDiff Complete? YES; Mean Corpuscular Hemoglobin 31.4 pg (27.0-31.0); Mean Platelet Volume 9.4 fL (7.4-10.4); Monocytes 7 % (0-10); Neutrophil 73 % (42-75); Platelet Count 182 thou/uL (130-400); RBC Distribution Width 12.4 % (11.5-14.5); Red Blood Cell (RBC) Count 3.83 mill/uL (4.70-6.10); White Blood Cell (WBC) Count 9.9 thou/uL (4.8-10.8)
[2019-10-24] MEDS: Fluconazole 100 MG TAB PO SCH (08:17)
[2019-10-24] MEDS: Enoxaparin Sodium 40 MG/0.4 ML SYRINGE SC SCH (08:17)
[2019-10-24] MEDS: Hydrochlorothiazide 25 MG TAB PO SCH (08:17)
[2019-10-24] MEDS: Cholecalciferol (Vitamin D3) 400 UNITS TAB PO SCH (08:18)
[2019-10-24] MEDS: Famotidine 20 MG TAB PO SCH ×2 (08:18→21:18)
[2019-10-24] MEDS: Aspirin Chewable 81 MG TAB PO SCH (08:18)
[2019-10-24] MEDS: Losartan 25 MG TAB PO SCH (08:18)
[2019-10-24] MEDS ORDERED: Potassium Chloride 20 MEQ TAB PO SCH (09:45)
--- NOTE | 2019-10-24 09:54 | PRG ---
DATE OF SERVICE: 10/24/2019 SERVICE: Pulmonary Medicine. INTERVAL HISTORY: The patient is doing outstanding from respiratory standpoint. He met with Speech Pathology yesterday, who gave him good news. He does have a little bit difficulty swallowing, particularly with his thin liquids. That being said, with some modifications, he should be able to minimize the impact this has on his respiratory health. Otherwise, he is feeling much improved, his oxygen requirements are improving, and in general, he feels better. The amount of sputum that he is generating is downtrending significantly. PHYSICAL EXAMINATION: VITAL SIGNS: Afebrile. Pulse 64, blood pressure 149/66, respirations 18, saturation 98%, currently on room air. GENERAL: The patient is awake and alert, in no apparent distress. LUNGS: Very good air entry. There are rhonchi are present. There is crackling in the right base. HEART: Normal rate and regular. ABDOMEN: Soft, nontender, nondistended. Bowel sounds are positive. MUSCULOSKELETAL: No cyanosis or clubbing. There is no pitting in the bilateral lower extremities. NEUROLOGIC: Grossly nonfocal. LABORATORY DATA: Creatinine is downtrending to 1.47, potassium 3.4. Otherwise, basic metabolic profile is unremarkable. Blood cultures x2 and urine culture unremarkable. IMAGING DATA: Modified barium swallow showed some penetration with thin liquids, but otherwise, he did pretty well. ASSESSMENT: 1. Acute hypoxic respiratory failure, resolved. 2. Healthcare-associated pneumonia. 3. 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 4. Oropharyngeal dysphagia, mild. DISCUSSION AND PLAN: Based on the infiltrates, I am guessing that he is aspirating while he is sleeping at night. As such, we talked about acid reflux precautions including elevating head of bed and avoiding p.o. within 2 hours going to sleep. HE will observe these precautions for life. He is clearing his inflammatory profile very nicely. His hemoglobin is downtrending slightly, and this will be repeated tomorrow morning. IV fluids will be interrupted, as the patient is tolerating p.o. just fine. I do not believe the patient has a PEG tube in his future, but we will need to clarify whether or not he requires Speech Pathology Services in the outpatient setting to practice some maneuvers to prevent aspiration. Lastly, he will need a full 5-day course of broad-spectrum antibiotics. After Monday evening, he can be converted over to p.o. and subsequently discharged from the hospital. He will need a repeat chest x-ray in 6 weeks. He has no further requirements for inpatient Pulmonary/Critical Care opinion, and I will sign off. Job ID: [id number]
--- NOTE | 2019-10-24 11:21 | PDOC.HOSPP ---
- Subjective Encounter Date: 10/24/19 Encounter Time: 11:15 Subjective: f/u for PNA with suspected aspiration component on current Zosyn/Vanc/ Fluconazole. Feels better overall and mild cough. - Objective Vital Signs & Weight: Vital Signs (12 hours) Temp Pulse Resp BP BP Pulse Ox 10/24/19 11:01 97.9 F 68 18 148/67 H 93 L 10/24/19 06:53 98 F 64 18 149/66 H 98 10/24/19 06:46 95 10/24/19 06:43 64 16 95 10/24/19 04:00 97.8 F 54 L 20 142/63 H 99 10/24/19 00:22 90 L 10/23/19 23:57 79 137/63 Weight Weight 214 lb 12.8 oz Most Recent Monitor Data Heart Rate from ECG 73 NIBP 107/50 NIBP BP-Mean 69 Respiration from ECG 17 SpO2 99 I&O: 10/23/19 10/24/19 10/25/19 06:59 06:59 06:59 Intake Total 1790 1510 Output Total 900 2700 Balance 890 -1190 Result Diagrams: 10/24/19 04:24 10/24/19 04:24 Additional Labs: Microbiology 10/21/19 22:00 Urine voided Urine Culture - Final NO GROWTH AT 36 HOURS 10/21/19 20:26 Venous blood - Right Hand Blood Culture - Preliminary NO GROWTH AT 48 HOURS 10/21/19 19:05 Venous blood - Right Arm Blood Culture - Preliminary NO GROWTH AT 48 HOURS Laboratory Tests 10/21/19 10/21/19 10/21/19 18:17 18:17 18:18 WBC 27.5 H Neutrophils % (Manual) 45 Band Neuts % (Manual) 45 H BUN Creatinine Lactic Acid 1.1 Troponin I 0.159 H 10/21/19 10/21/19 10/22/19 18:18 21:36 00:39 WBC Neutrophils % (Manual) Band Neuts % (Manual) BUN 25 Creatinine 1.32 H Lactic Acid Troponin I 0.119 H 0.168 H 10/22/19 03:47 WBC Neutrophils % (Manual) 52 Band Neuts % (Manual) 43 H BUN Creatinine Lactic Acid Troponin I Radiology Reviewed by me: Yes (MBS - thin liquid penetration) EKG Reviewed by me: Yes (Tele -SR) Hospitalist ROS - Medication Medications: Active Medications Generic Name Dose Route Start Last Admin Trade Name Viktoria PRN Reason Stop Dose Admin Albuterol/Ipratropium 3 ml 10/22/19 01:00 10/24/19 06:43 Duoneb NEB 3 ml [id number] ABRAHAM Administration Aspirin 81 mg 10/22/19 09:00 10/24/19 08:18 Aspirin Chewable PO 81 mg DAILY ABRAHAM Administration Atorvastatin Calcium 10 mg 10/22/19 21:00 10/23/19 20:44 Lipitor PO 10 mg HS ABRAHAM Administration Cholecalciferol 400 units 10/23/19 09:00 10/24/19 08:18 Vitamin D PO 400 units DAILY ABRAHAM Administration Enoxaparin Sodium 40 mg 10/22/19 09:00 10/24/19 08:17 Lovenox SC 40 mg 0900 ABRAHAM Administration Famotidine 20 mg 10/22/19 09:00 10/24/19 08:18 Pepcid PO 20 mg BID ABRAHAM Administration Fluconazole 100 mg 10/23/19 09:00 10/24/19 08:17 Diflucan PO 10/30/19 09:01 100 mg DAILY ABRAHAM Administration Hydrochlorothiazide 25 mg 10/23/19 09:00 10/24/19 08:17 Hydrochlorothiazide PO 25 mg DAILY ABRAHAM Administration Piperacillin Sod/Tazobactam 100 mls @ 200 mls/hr 10/22/19 03:00 10/24/19 08: 17 Sod 3.375 gm/ Sodium Chloride IVPB 100 mls 0300,0900,1500,2100 ABRAHAM Administration Vancomycin HCl 1 gm/ Device 200 mls @ 200 mls/hr 10/22/19 03:00 10/24/19 03: 15 IVPB 200 mls 0300,1500 ABRAHAM Administration Losartan Potassium 100 mg 10/22/19 09:00 10/24/19 08:18 Cozaar PO 100 mg DAILY ABRAHAM Administration Potassium Chloride 40 meq 10/24/19 09:45 10/24/19 10:27 K-Dur PO 10/24/19 11:45 40 meq NOW ABRAHAM Administration Sodium Chloride 10 ml 10/23/19 09:00 10/24/19 08:26 Flush - Normal Saline IVF 10 ml Q12HR ABRAHAM Administration - Exam General Appearance: NAD, awake alert Eye: PERRL, anicteric sclera ENT: normocephalic atraumatic, no oropharyngeal lesions Neck: supple, symmetric, no JVD, no thyromegaly Heart: RRR, no murmur, no gallops, no rubs, normal peripheral pulses Respiratory: normal chest expansion, no tachypnea, rhonchi Respiratory - other findings: coarse sounds bilat Gastrointestinal: soft, non-tender, non-distended, normal bowel sounds, no palpable masses Extremities: no cyanosis, no clubbing, no edema Skin: normal turgor, no lesions Neurological: cranial nerve grossly intact, no new deficit Musculoskeletal: normal tone, normal strength, no muscle wasting Psychiatric: normal affect, A&O x 3 Hosp A/P (1) Aspiration pneumonia Code(s): J69.0 - PNEUMONITIS DUE TO INHALATION OF FOOD AND VOMIT Status: Acute Qualifiers: Laterality: bilateral Plan: Likely aspiration component, improving clinically, continue Zosyn/Vanc/ Fluconazole (2) Acute respiratory failure with hypoxia Code(s): J96.01 - ACUTE RESPIRATORY FAILURE WITH HYPOXIA Status: Acute Plan: Resolving, O2 PRN (3) Dysphagia Code(s): R13.10 - DYSPHAGIA, UNSPECIFIED Status: Chronic Qualifiers: Dysphagia type: oropharyngeal phase Qualified Code(s): R13.12 - Dysphagia, oropharyngeal phase Plan: OIL REFINERY OPERATOR for modified diet/techniques for longterm mgmt (4) Hypertension Code(s): I10 - ESSENTIAL (PRIMARY) HYPERTENSION Status: Chronic Qualifiers: Hypertension type: essential hypertension Qualified Code(s): I10 - Essential (primary) hypertension (5) Vocal cord paralysis Code(s): J38.00 - PARALYSIS OF VOCAL CORDS AND LARYNX, UNSPECIFIED Status: Chronic - Plan continue antibiotics, addiction social worker, speech therapy, respiratory therapy, out of bed/ambulate, DVT proph w/SCDs Stable currently Continue Vanc/Zosyn/Fluconazole for 5 day course then de-escalate MBS with penetration of thin liquids OOB/ambulate OIL REFINERY OPERATOR for home recommendations AM lab: H/H, Vanc trough
[2019-10-24] MEDS: Atorvastatin Calcium 10 MG TAB PO SCH (21:18)
[2019-10-25] MEDS: Vancomycin 1 GM in Premix Bag 1 BAG IVPB SCH ×2 (03:30→15:42)
[2019-10-25] MEDS: Piperacillin/Tazobactam 3.375 GM in Sodium Chloride 0.9% 100 ML IVPB SCH ×4 (03:37→20:31)
[2019-10-25] MEDS: Losartan 25 MG TAB PO SCH (08:46)
[2019-10-25] MEDS: Aspirin Chewable 81 MG TAB PO SCH (08:46)
[2019-10-25] MEDS: Enoxaparin Sodium 40 MG/0.4 ML SYRINGE SC SCH (08:46)
[2019-10-25] MEDS: Famotidine 20 MG TAB PO SCH ×2 (08:47→20:32)
[2019-10-25] MEDS: Cholecalciferol (Vitamin D3) 400 UNITS TAB PO SCH (08:47)
[2019-10-25] MEDS: Hydrochlorothiazide 25 MG TAB PO SCH (08:47)
[2019-10-25] MEDS: Fluconazole 100 MG TAB PO SCH (08:47)
--- NOTE | 2019-10-25 13:22 | PDOC.HOSPP ---
- Subjective Encounter Date: 10/25/19 Encounter Time: 13:15 Subjective: f/u for PNA with suspected aspiration component on current Zosyn/Vancomycin/ Fluconazole. Feels much better overall. - Objective Vital Signs & Weight: Vital Signs (12 hours) Temp Pulse Resp BP Pulse Ox 10/25/19 13:09 66 20 95 10/25/19 11:41 98.4 F 69 18 135/68 95 10/25/19 08:00 98.4 F 78 19 134/63 94 L 10/25/19 07:20 66 18 96 10/25/19 04:00 98.1 F 63 21 H 164/73 H 95 Weight Weight 214 lb 12.8 oz Most Recent Monitor Data Heart Rate from ECG 73 NIBP 107/50 NIBP BP-Mean 69 Respiration from ECG 17 SpO2 99 I&O: 10/24/19 10/25/19 10/26/19 06:59 06:59 06:59 Intake Total 1510 150 Output Total 2700 1250 Balance -1190 -1100 Result Diagrams: 10/24/19 04:24 10/24/19 04:24 Additional Labs: Microbiology 10/21/19 22:00 Urine voided Urine Culture - Final NO GROWTH AT 36 HOURS 10/21/19 20:26 Venous blood - Right Hand Blood Culture - Preliminary NO GROWTH AT 48 HOURS 10/21/19 19:05 Venous blood - Right Arm Blood Culture - Preliminary NO GROWTH AT 48 HOURS Laboratory Tests 10/21/19 10/21/19 10/21/19 18:17 18:17 18:18 WBC 27.5 H Neutrophils % (Manual) 45 Band Neuts % (Manual) 45 H BUN Creatinine Lactic Acid 1.1 Troponin I 0.159 H 10/21/19 10/21/19 10/22/19 18:18 21:36 00:39 WBC Neutrophils % (Manual) Band Neuts % (Manual) BUN 25 Creatinine 1.32 H Lactic Acid Troponin I 0.119 H 0.168 H 10/22/19 03:47 WBC Neutrophils % (Manual) 52 Band Neuts % (Manual) 43 H BUN Creatinine Lactic Acid Troponin I EKG Reviewed by me: Yes (Tele - SR) Hospitalist ROS - Medication Medications: Active Medications Generic Name Dose Route Start Last Admin Trade Name Freq PRN Reason Stop Dose Admin Albuterol/Ipratropium 3 ml 10/22/19 01:00 10/25/19 13:09 Duoneb NEB 3 ml [id number] ABRAHAM Administration Aspirin 81 mg 10/22/19 09:00 10/25/19 08:46 Aspirin Chewable PO 81 mg DAILY ABRAHAM Administration Atorvastatin Calcium 10 mg 10/22/19 21:00 10/24/19 21:18 Lipitor PO 10 mg HS ABRAHAM Administration Cholecalciferol 400 units 10/23/19 09:00 10/25/19 08:47 Vitamin D PO 400 units DAILY ABRAHAM Administration Enoxaparin Sodium 40 mg 10/22/19 09:00 10/25/19 08:46 Lovenox SC 40 mg 0900 ABRAHAM Administration Famotidine 20 mg 10/22/19 09:00 10/25/19 08:47 Pepcid PO 20 mg BID ABRAHAM Administration Fluconazole 100 mg 10/23/19 09:00 10/25/19 08:47 Diflucan PO 10/30/19 09:01 100 mg DAILY ABRAHAM Administration Hydrochlorothiazide 25 mg 10/23/19 09:00 10/25/19 08:47 Hydrochlorothiazide PO 25 mg DAILY ABRAHAM Administration Piperacillin Sod/Tazobactam 100 mls @ 200 mls/hr 10/22/19 03:00 10/25/19 08: 46 Sod 3.375 gm/ Sodium Chloride IVPB 100 mls 0300,0900,1500,2100 ABRAHAM Administration Vancomycin HCl 1 gm/ Device 200 mls @ 200 mls/hr 10/22/19 03:00 10/25/19 03: 30 IVPB 200 mls 0300,1500 ABRAHAM Administration Losartan Potassium 100 mg 10/22/19 09:00 10/25/19 08:46 Cozaar PO 100 mg DAILY ABRAHAM Administration Ondansetron HCl 4 mg 10/21/19 23:11 10/24/19 14:33 Zofran Odt PO 4 mg Q6H PRN Administration Nausea/Vomiting Sodium Chloride 10 ml 10/23/19 09:00 10/25/19 08:47 Flush - Normal Saline IVF 10 ml Q12HR ABRAHAM Administration - Exam General Appearance: NAD, awake alert Eye: PERRL, anicteric sclera ENT: normocephalic atraumatic, no oropharyngeal lesions Neck: supple, symmetric, no JVD, no thyromegaly Heart: RRR, no murmur, no gallops, no rubs, normal peripheral pulses Heart - other findings: S1, S2 Respiratory: no wheezes, normal chest expansion, no tachypnea Respiratory - other findings: few scattered rhonchi Gastrointestinal: soft, non-tender, non-distended, normal bowel sounds, no palpable masses Extremities: no cyanosis, no clubbing, no edema Skin: normal turgor, no lesions Neurological: cranial nerve grossly intact, no new deficit Musculoskeletal: normal tone, normal strength, no muscle wasting Psychiatric: normal affect, A&O x 3 Hosp A/P (1) Aspiration pneumonia Code(s): J69.0 - PNEUMONITIS DUE TO INHALATION OF FOOD AND VOMIT Status: Acute Qualifiers: Laterality: bilateral (2) Acute respiratory failure with hypoxia Code(s): J96.01 - ACUTE RESPIRATORY FAILURE WITH HYPOXIA Status: Acute (3) Dysphagia Code(s): R13.10 - DYSPHAGIA, UNSPECIFIED Status: Chronic Qualifiers: Dysphagia type: oropharyngeal phase Qualified Code(s): R13.12 - Dysphagia, oropharyngeal phase (4) Hypertension Code(s): I10 - ESSENTIAL (PRIMARY) HYPERTENSION Status: Chronic Qualifiers: Hypertension type: essential hypertension Qualified Code(s): I10 - Essential (primary) hypertension (5) Vocal cord paralysis Code(s): J38.00 - PARALYSIS OF VOCAL CORDS AND LARYNX, UNSPECIFIED Status: Chronic - Plan Stable currently Continue Vanc/Zosyn/Fluconazole for 5 day course then de-escalate MBS with penetration of thin liquids OOB/ambulate LICENSED PRACTICAL VOCATIONAL NURSE for home recommendations AM lab: H/H, Vanc trough
--- NOTE | 2019-10-25 17:47 | PQF ---
CLINICAL DOCUMENTATION IMPROVEMENT CLARIFICATION FORM: ICD-10 Updated PLEASE DO AN ADDENDUM TO THE PROGRESS NOTE WITH ANY DOCUMENTATION UPDATES OR ADDITIONS AND CARRY THROUGH TO DC SUMMARY. THANK YOU. DATE: 10/25/19 ATTN: DR. NOEL Please exercise your independent, professional judgment in responding to the clarification form. Clinical indicators are provided on the bottom of this form for your review Please check appropriate box(es): [ ] Sepsis present on admission [ ] Sepsis NOT present on admission [ ] Unable to determine Due to: [ ] SIRS due to non-infectious process (please specify etiology) [ ] with organ dysfunction [ ] without organ dysfunction [ ] Severe sepsis present on admission [ ] Severe Sepsis NOT present on admission [ ] Unable to determine [ x ] Localized infection without sepsis [ ] Other diagnosis [ ] Unable to determine For continuity of documentation, please document condition throughout progress notes and discharge summary. Thank You. CLINICAL INDICATORS - SIGNS / SYMPTOMS / LABS / RESULTS AND LOCATION IN MR ER NOTE: RR 20-23 TEMP 100 WBC 10/21: 28.5 BANDS 10/20: 45 RISKS: ASPIRATION PNEUMONIA (H&P 10/24) TREATMENT: IV AZITHROMYCIN (ER) IV ROCEPHIN (ER) IV ZOSYN (10/21-PRESENT) IV VANCOMYCIN (10/21-PRESENT) CARDIAC MONITORING BLOOD, URINE AND SPUTUM CULTURES (10/20, 10/24) SAP Assistant Vice President [employer] Winform Viewer (This form is maintained as a part of the permanent medical record) 2014 [employer]. All Rights Reserved CRESCENCIO [email or web address] Office: [phone] [facility] [facility]
--- NOTE | 2019-10-25 17:54 | PQF ---
CLINICAL DOCUMENTATION IMPROVEMENT CLARIFICATION FORM: ICD-10 Updated PLEASE DO AN ADDENDUM TO THE PROGRESS NOTE WITH ANY DOCUMENTATION UPDATES OR ADDITIONS AND CARRY THROUGH TO DC SUMMARY. THANK YOU. DATE: 10/25/19 ATTN : DR. NOEL Please exercise your independent, professional judgment in responding to the clarification form. Clinical indicators are provided on the bottom of this form for your review Please check appropriate box(s): [ ] Associated Diagnosis: [ x ] Other diagnosis __Aspiration pneumonia [ ] Unable to determine In addition, please specify: Present on Admission (POA): [ x ] Yes [ ] No [ ] Unable to determine For continuity of documentation, please document condition throughout progress notes and discharge summary. Thank You. CLINICAL INDICATORS - SIGNS / SYMPTOMS/ LABS are present in the medical record: TROPONINS 10/20-10/21: 0.159 / 0.119 / 0.168 RISKS: ASPIRATION PNEUMONIA (PROGRESS NOTE 10/24) H/O HYPERTENSION (H&P 10/20) TREATMENT: ASPIRIN (10/21-PRESENT) LOVENOX (10/21-PRESENT) TELEMETRY MONITORING SERIAL LABS (This form is maintained as a part of the permanent medical record) 2014 [employer] All Rights Reserved CRESCENCIO [email or web address] Office: [phone] [facility] CENTER[facility]
[2019-10-25] MEDS: Atorvastatin Calcium 10 MG TAB PO SCH (20:31)
[2019-10-26 03:08] LABS: Vancomycin, Trough 29.5 ug/mL
[2019-10-26] MEDS: Piperacillin/Tazobactam 3.375 GM in Sodium Chloride 0.9% 100 ML IVPB SCH ×4 (03:16→20:15)
[2019-10-26] MEDS: Vancomycin 1 GM in Premix Bag 1 BAG IVPB SCH (03:20)
[2019-10-26] MEDS: Hydrochlorothiazide 25 MG TAB PO SCH (08:15)
[2019-10-26] MEDS: Fluconazole 100 MG TAB PO SCH (08:15)
[2019-10-26] MEDS: Cholecalciferol (Vitamin D3) 400 UNITS TAB PO SCH (08:15)
[2019-10-26] MEDS: Losartan 25 MG TAB PO SCH (08:15)
[2019-10-26] MEDS: Famotidine 20 MG TAB PO SCH ×2 (08:16→20:15)
[2019-10-26] MEDS: Enoxaparin Sodium 40 MG/0.4 ML SYRINGE SC SCH (08:16)
[2019-10-26] MEDS: Aspirin Chewable 81 MG TAB PO SCH (08:16)
--- NOTE | 2019-10-26 08:45 | EKG ---
Test Reason : Blood Pressure : / mmHG Vent. Rate : 069 BPM Atrial Rate : 069 BPM P-R Int : 154 ms QRS Dur : 086 ms QT Int : 436 ms P-R-T Axes : 063 010 024 degrees QTc Int : 467 ms Normal sinus rhythm Septal infarct , age undetermined Abnormal ECG Confirmed by HALINA HOLT D.O. ([id number]), editor book IVY OLSON ([id number]) on 10/26/2019 8:45:11 AM Referred By: Confirmed By:HALINA HOLT D.O.
--- NOTE | 2019-10-26 10:39 | PDOC.HOSPP ---
- Subjective Encounter Date: 10/26/19 Encounter Time: 10:38 Subjective: Mr. Mitchell was seen today in follow-up of pneumonia. He says he feels better. He does not have any complaints. He is sitting up eating breakfast. - Objective Vital Signs & Weight: Vital Signs (12 hours) Temp Pulse Resp BP BP Pulse Ox 10/26/19 09:31 140/63 10/26/19 08:00 99.1 F 68 17 203/77 H 98 10/26/19 03:24 98.2 F 57 L 20 124/57 L 98 10/26/19 00:38 12 Weight Weight 217 lb 12.8 oz Most Recent Monitor Data Heart Rate from ECG 73 NIBP 107/50 NIBP BP-Mean 69 Respiration from ECG 17 SpO2 99 I&O: 10/25/19 10/26/19 10/27/19 06:59 06:59 06:59 Intake Total 150 1620 Output Total 1250 2400 Balance -1100 -780 Result Diagrams: 10/26/19 02:48 10/24/19 04:24 Hospitalist ROS - Medication Medications: Active Medications Generic Name Dose Route Start Last Admin Trade Name Freq PRN Reason Stop Dose Admin Albuterol/Ipratropium 3 ml 10/22/19 01:00 10/26/19 00:38 Duoneb NEB 3 ml [id number] ABRAHAM Administration Aspirin 81 mg 10/22/19 09:00 10/26/19 08:16 Aspirin Chewable PO 81 mg DAILY ABRAHAM Administration Atorvastatin Calcium 10 mg 10/22/19 21:00 10/25/19 20:31 Lipitor PO 10 mg HS ABRAHAM Administration Cholecalciferol 400 units 10/23/19 09:00 10/26/19 08:15 Vitamin D PO 400 units DAILY ABRAHAM Administration Enoxaparin Sodium 40 mg 10/22/19 09:00 10/26/19 08:16 Lovenox SC 40 mg 0900 ABRAHAM Administration Famotidine 20 mg 10/22/19 09:00 10/26/19 08:16 Pepcid PO 20 mg BID ABRAHAM Administration Fluconazole 100 mg 10/23/19 09:00 10/26/19 08:15 Diflucan PO 10/30/19 09:01 100 mg DAILY ABRAHAM Administration Hydrochlorothiazide 25 mg 10/23/19 09:00 10/26/19 08:15 Hydrochlorothiazide PO 25 mg DAILY ABRAHAM Administration Piperacillin Sod/Tazobactam 100 mls @ 200 mls/hr 10/22/19 03:00 10/26/19 08: 16 Sod 3.375 gm/ Sodium Chloride IVPB 100 mls 0300,0900,1500,2100 ABRAHAM Administration Losartan Potassium 100 mg 10/22/19 09:00 10/26/19 08:15 Cozaar PO 100 mg DAILY ABRAHAM Administration Ondansetron HCl 4 mg 10/21/19 23:11 10/24/19 14:33 Zofran Odt PO 4 mg Q6H PRN Administration Nausea/Vomiting Sodium Chloride 10 ml 10/23/19 09:00 10/26/19 08:17 Flush - Normal Saline IVF 10 ml Q12HR ABRAHAM Administration - Exam Eye: PERRL Heart: RRR, no murmur, no gallops, no rubs, normal peripheral pulses Respiratory: CTAB (with the exception of mild rales at the left base) Gastrointestinal: soft, non-tender, non-distended, normal bowel sounds, no palpable masses Hosp A/P (1) Aspiration pneumonia Code(s): J69.0 - PNEUMONITIS DUE TO INHALATION OF FOOD AND VOMIT Status: Acute Qualifiers: Laterality: bilateral (2) Acute respiratory failure with hypoxia Code(s): J96.01 - ACUTE RESPIRATORY FAILURE WITH HYPOXIA Status: Acute (3) Hypertension Code(s): I10 - ESSENTIAL (PRIMARY) HYPERTENSION Status: Chronic Qualifiers: Hypertension type: essential hypertension Qualified Code(s): I10 - Essential (primary) hypertension (4) Hyperlipidemia Code(s): E78.5 - HYPERLIPIDEMIA, UNSPECIFIED Status: Chronic (5) Vocal cord paralysis Code(s): J38.00 - PARALYSIS OF VOCAL CORDS AND LARYNX, UNSPECIFIED Status: Chronic - Plan * Acute respiratory failure with hypoxemia- likely due to aspiration pneumonia * Pulmonary recommendations noted * He is on the final day of IV antibiotics * Will transition him to oral antibiotics tomorrow * HTN- blood pressure was a bit elevated- will monitor- it quickly returned to normal without intervention * Plan on discharge home tomorrow
[2019-10-26] MEDS: Atorvastatin Calcium 10 MG TAB PO SCH (20:15)
[2019-10-27] MEDS: Piperacillin/Tazobactam 3.375 GM in Sodium Chloride 0.9% 100 ML IVPB SCH ×3 (02:09→15:13)
[2019-10-27 05:26] VITALS: BMI 4233.6
[2019-10-27] MEDS: Aspirin Chewable 81 MG TAB PO SCH (08:21)
[2019-10-27] MEDS: Fluconazole 100 MG TAB PO SCH (08:21)
[2019-10-27] MEDS: Losartan 25 MG TAB PO SCH (08:21)
[2019-10-27] MEDS: Cholecalciferol (Vitamin D3) 400 UNITS TAB PO SCH (08:21)
[2019-10-27] MEDS: Famotidine 20 MG TAB PO SCH (08:25)
[2019-10-27] MEDS: Enoxaparin Sodium 40 MG/0.4 ML SYRINGE SC SCH (08:26)
[2019-10-27] MEDS: Hydrochlorothiazide 25 MG TAB PO SCH (08:28)
[2019-10-27] MEDS ORDERED: Vancomycin 1.5 GRAM/300 ML BAG 1.5 GM in Premix Bag 1 BAG IVPB SCH (09:00)
--- NOTE | 2019-10-27 12:25 | PDOC.HOSPP ---
- Subjective Encounter Date: 10/27/19 Encounter Time: 12:17 Subjective: Mr. Mitchell was seen today in follow-up of pneumonia. He says he feels much better. He does not have any new complaints. - Objective Vital Signs & Weight: Vital Signs (12 hours) Temp Pulse Resp BP BP Pulse Ox 10/27/19 08:00 60 16 97 10/27/19 07:00 96.6 F L 61 18 165/69 H 97 10/27/19 03:27 97.8 F 57 L 20 133/61 96 Weight Weight 216 lb 12.8 oz Most Recent Monitor Data Heart Rate from ECG 73 NIBP 107/50 NIBP BP-Mean 69 Respiration from ECG 17 SpO2 99 I&O: 10/26/19 10/27/19 10/28/19 06:59 06:59 06:59 Intake Total 1620 1460 Output Total 2400 1750 Balance -780 -290 Result Diagrams: 10/26/19 02:48 10/24/19 04:24 Hospitalist ROS - Medication Medications: Active Medications Generic Name Dose Route Start Last Admin Trade Name Viktoria PRN Reason Stop Dose Admin Albuterol/Ipratropium 3 ml 10/22/19 01:00 10/27/19 08:00 Duoneb NEB 3 ml [id number] ABRAHAM Administration Aspirin 81 mg 10/22/19 09:00 10/27/19 08:21 Aspirin Chewable PO 81 mg DAILY ABRAHAM Administration Atorvastatin Calcium 10 mg 10/22/19 21:00 10/26/19 20:15 Lipitor PO 10 mg HS ABRAHAM Administration Cholecalciferol 400 units 10/23/19 09:00 10/27/19 08:21 Vitamin D PO 400 units DAILY ABRAHAM Administration Enoxaparin Sodium 40 mg 10/22/19 09:00 10/27/19 08:26 Lovenox SC 40 mg 0900 ABRAHAM Administration Famotidine 20 mg 10/22/19 09:00 10/27/19 08:25 Pepcid PO 20 mg BID ABRAHAM Administration Fluconazole 100 mg 10/23/19 09:00 10/27/19 08:21 Diflucan PO 10/30/19 09:01 100 mg DAILY ABRAHAM Administration Hydrochlorothiazide 25 mg 10/23/19 09:00 10/27/19 08:28 Hydrochlorothiazide PO 25 mg DAILY ABRAHAM Administration Piperacillin Sod/Tazobactam 100 mls @ 200 mls/hr 10/22/19 03:00 10/27/19 08: 21 Sod 3.375 gm/ Sodium Chloride IVPB 100 mls 0300,0900,1500,2100 ABRAHAM Administration Vancomycin HCl 1.5 gm/ Device 300 mls @ 200 mls/hr 10/27/19 09:00 10/27/19 08 :26 IVPB 300 mls 0900 ABRAHAM Administration Losartan Potassium 100 mg 10/22/19 09:00 10/27/19 08:21 Cozaar PO 100 mg DAILY ABRAHAM Administration Ondansetron HCl 4 mg 10/21/19 23:11 10/24/19 14:33 Zofran Odt PO 4 mg Q6H PRN Administration Nausea/Vomiting Sodium Chloride 10 ml 10/23/19 09:00 10/27/19 08:22 Flush - Normal Saline IVF 10 ml Q12HR ABRAHAM Administration - Exam Eye: PERRL Heart: RRR, no murmur, no gallops, no rubs, normal peripheral pulses Respiratory: CTAB (with the exception) Gastrointestinal: soft, non-tender, non-distended, normal bowel sounds, no palpable masses, no hepatomegaly Extremities: no cyanosis Hosp A/P (1) Aspiration pneumonia Code(s): J69.0 - PNEUMONITIS DUE TO INHALATION OF FOOD AND VOMIT Status: Acute Qualifiers: Laterality: bilateral (2) Acute respiratory failure with hypoxia Code(s): J96.01 - ACUTE RESPIRATORY FAILURE WITH HYPOXIA Status: Acute (3) Hypertension Code(s): I10 - ESSENTIAL (PRIMARY) HYPERTENSION Status: Chronic Qualifiers: Hypertension type: essential hypertension Qualified Code(s): I10 - Essential (primary) hypertension (4) Hyperlipidemia Code(s): E78.5 - HYPERLIPIDEMIA, UNSPECIFIED Status: Chronic (5) Vocal cord paralysis Code(s): J38.00 - PARALYSIS OF VOCAL CORDS AND LARYNX, UNSPECIFIED Status: Chronic - Plan * Acute respiratory failure with hypoxemia- likely due to aspiration pneumonia * He will finish his course of IV antibiotics today * Home later today on Augmentin and Diflucan. * He already has the Augmentin
[2019-10-27 16:07] VITALS: BP 133/58; TEMP 98.1
--- NOTE | 2019-10-28 09:59 | DIS ---
DATE OF ADMISSION: 10/21/2019 DATE OF DISCHARGE: 10/27/2019 DISCHARGE DISPOSITION: Home. DISCHARGE DIAGNOSES: 1. Aspiration pneumonia. 2. Chronic vocal cord paralysis. 3. Hypertension. 4. Dyslipidemia. 5. Gastroesophageal reflux disease. DISCHARGE MEDICATIONS: 1. Diflucan 100 mg p.o. daily. 2. Augmentin 875 mg p.o. twice daily. 3. CoQ10 of 200 mg daily. 4. Losartan 100 mg daily. 5. Hydrochlorothiazide 25 mg daily. 6. Vitamin D3 400 units daily. 7. Lipitor 20 mg at bedtime. 8. Aspirin 81 mg a day. IMAGING AND PROCEDURES DONE DURING THE HOSPITAL STAY: The patient had a CT scan of the chest showing bibasilar airspace consolidation, left greater than right. There was a small hiatal hernia and a hepatic cyst as well as cholelithiasis. The patient had a modified barium swallow showing penetration with thin liquid consistency. CODE STATUS: Full code. ALLERGIES: CONTRAST MEDIA AND CODEINE. HOSPITAL COURSE: Mr. Mitchell is a pleasant 79-year-old gentleman, who was admitted to the hospital with cough and congestion, which had been ongoing for the last 3 weeks or so. He has a history of vocal cord paralysis and it was suspected that this could be contributing to his symptoms. He was evaluated by Speech Therapy and it was determined that he did have some risk for aspiration. However, the patient was instructed on a diet, which would be the safest, but he would still be at some risk. It is also suspected that he has significant reflux at night, which is also contributing to his symptoms. He was instructed to continue taking his proton pump inhibitor as well as keeping the head of the bed elevated at night. The patient was seen by Pulmonology during his hospital stay and after several days of treatment, he was able to be discharged home in stable condition. Job ID: [id number]
--- NOTE | 2019-10-28 21:38 | EKG ---
Test Reason : Blood Pressure : / mmHG Vent. Rate : 063 BPM Atrial Rate : 063 BPM P-R Int : 168 ms QRS Dur : 086 ms QT Int : 444 ms P-R-T Axes : 072 063 -24 degrees QTc Int : 454 ms Normal sinus rhythm Low voltage QRS Septal infarct (cited on or before 21-OCT-2019) Abnormal ECG When compared with ECG of 21-OCT-2019 18:21, No significant change was found Confirmed by JONO LENTZ, SBraeden ([id number]) on 10/28/2019 9:37:49 PM Referred By: SHAAN Confirmed By:DR. Carlin DE LA CRUZ MD
== END 2019-10-27 18:35 | disposition home or self-care (01) | DRG 177 ==
LOC: ERS 17:15 → ERHOLD 20:35 → IMCU/EMU 10-22 → 2NO 10-22 22:24
PROVIDERS: ADMIT Internal Medicine; ATTEND Internal Medicine
DX: J69.0 Pneumonitis due to inhalation of food and vomit (principal); J96.01 Acute respiratory failure with hypoxia; I24.8 Other forms of acute ischemic heart disease; E78.5 Hyperlipidemia, unspecified; E78.00 Pure hypercholesterolemia, unspecified; I10 Essential (primary) hypertension; N28.9 Disorder of kidney and ureter, unspecified; J38.02 Paralysis of vocal cords and larynx, bilateral; K21.9 Gastro-esophageal reflux disease without esophagitis; Y95 Nosocomial condition; R13.12 Dysphagia, oropharyngeal phase; Z88.5 Allergy status to narcotic agent; Z91.041 Radiographic dye allergy status; Z79.82 Long term (current) use of aspirin; Z79.899 Other long term (current) drug therapy
CPT/HCPCS: 36415; 71045; 71046; 71250; 74230; 78452; 80048; 80053; 80061; 80202; 81003; 81015; 82553; 83605; 83880; 84145; 84484; 85007; 85014; 85018; 85025; 85027; 87040; 87070; 87086; 87205; 93005; 93010; 93017; 94640; 94760; 96365; 96367; 99215; A9500; G0378; G0463; J0456; J0696; J1650; J1940; J2543; J2785; J3370; J3490; J7512; J7620; Q0162

== ENCOUNTER 2020-01-08 09:57 | Outpatient (CLI) | payer MEDICARE, BC ==
--- NOTE | 2020-01-08 11:29 | RAD ---
2 VIEW CHEST: Date: 01/08/2020 HISTORY: Dyspnea. COMPARISON: 10/21/2019. FINDINGS: Lung canseco appear clear. No evidence of infiltrate. Heart and mediastinum unremarkable. Vascular mar kings normal. IMPRESSION: No acute process. POS: AGW
== END 2020-01-08 09:58 | disposition home or self-care (01) ==
LOC: BICRAD 09:57
PROVIDERS: ATTEND Internal Medicine Critical Care Medicine
DX: R06.00 Dyspnea, unspecified (principal)
CPT/HCPCS: 71046

== ENCOUNTER 2022-02-02 15:36 | Observation (INO) | payer MEDICARE, BC ==
[2022-02-02 17:14] LABS: #Eosinphils 0.1 thou/uL (0.0-0.7); #Lymphocytes 1.1 thou/uL (1.20-3.40); #Monocytes 0.7 thou/uL (0.11-0.59); #Neutrophils 5.9 thou/uL (1.40-6.50); %Lymphocytes 14.2 % (21.0-51.0); %Monocytes 9.2 % (0.0-10.0); %Neutrophils 75.5 % (42.0-75.0); Hemoglobin 13.5 g/dL (14.0-18.0); Mean Corpuscular HGB CONC 32.5 g/dL (32.0-36.0); Mean Corpuscular Hemoglobin 31.8 pg (27.0-31.0); Mean Corpuscular Volume 97.9 fL (78.0-98.0); Mean Platelet Volume 8.9 fL (7.4-10.4); Platelet Count 197 thou/uL (130-400); RBC Distribution Width 12.4 % (11.5-14.5); Red Blood Cell (RBC) Count 4.26 mill/uL (4.70-6.10); White Blood Cell (WBC) Count 7.8 thou/uL (4.8-10.8)
[2022-02-02 17:27] LABS: ALT (SGPT) 15 U/L (8-55); AST (SGOT) 19 U/L (5-34); Albumin 3.9 g/dL (3.4-4.8); Alkaline Phosphatase 68 U/L (40-110); Anion Gap 16 mmol/L (10-20); BUN (Urea Nitrogen) 22 mg/dL (8.4-25.7); Bilirubin, Total 0.6 mg/dL (0.2-1.2); Calc. Creatinine Clearance 0 mL/min (70-130); Calcium 9.1 mg/dL (7.8-10.44); Carbon Dioxide 25 mmol/L (23-31); Chloride 104 mmol/L (98-107); Estimated GFR 49; Globulin 2.9 g/dL (2.4-3.5); Glucose 96 mg/dL (83-110); Potassium 4.3 mmol/L (3.5-5.1); Protein, Total 6.8 g/dL (5.8-8.1); Sodium 141 mmol/L (136-145)
[2022-02-02 17:49] LABS: CKMB 2.5 ng/mL (0-6.6)
[2022-02-02] MEDS ORDERED: Senokot S 8.6-50 MG TAB PO PRN (20:34)
[2022-02-02] MEDS ORDERED: Nitroglycerin 0.4 MG TAB (25 Tab Bottle) SL PRN (20:34)
[2022-02-02] MEDS ORDERED: Bisacodyl 10 MG SUPP PR PRN (20:34)
[2022-02-02] MEDS ORDERED: Ondansetron ODT 4 MG TAB PO PRN (20:34)
[2022-02-02] MEDS ORDERED: Acetaminophen 650 MG Suppository PR PRN (20:34)
[2022-02-02] MEDS ORDERED: Acetaminophen 325 MG TAB PO PRN (20:34)
[2022-02-02] MEDS ORDERED: Ondansetron PF 4 MG/2 ML Vial IVP PRN (20:34)
[2022-02-02 20:59] VITALS: BMI 30.4
[2022-02-02 21:19] LABS: Troponin I 0.044 ng/mL (< 0.028)
[2022-02-02] MEDS ORDERED: Famotidine 20 MG TAB PO PRN (21:24)
[2022-02-02] MEDS ORDERED: Atorvastatin Calcium 20 MG TAB PO SCH (21:30)
[2022-02-02 23:25] LABS: Troponin I 0.049 ng/mL (< 0.028)
[2022-02-03] MEDS ORDERED: hydrALAZINE 20 MG/ML VIAL SLOW IVP PRN (00:26)
[2022-02-03 05:29] LABS: Anion Gap 14 mmol/L (10-20); BUN (Urea Nitrogen) 22 mg/dL (8.4-25.7); Calc. Creatinine Clearance 68 mL/min (70-130); Carbon Dioxide 26 mmol/L (23-31); Cardiac Risk 5.3 (Less than 4.5); Chloride 105 mmol/L (98-107); Cholesterol 158 mg/dl (< 200 Desired); Estimated GFR 57; Glucose 99 mg/dL (83-110); HDL Cholesterol 30 mg/dL (>60 Neg Risk); LDL Cholesterol, Calculated 102 mg/dL; Potassium 3.6 mmol/L (3.5-5.1); Sodium 141 mmol/L (136-145); Triglycerides 129 mg/dL (Less than 150)
[2022-02-03] MEDS ORDERED: Regadenoson 0.4 MG/5 ML SYRINGE ONE (08:46)
[2022-02-03] MEDS ORDERED: Heparin 5,000 UNITS/ML VIAL SC SCH (09:00)
[2022-02-03] MEDS ORDERED: Losartan 25 MG TAB PO SCH (09:00)
[2022-02-03] MEDS ORDERED: Aspirin Chewable 81 MG TAB PO SCH (09:00)
[2022-02-03] MEDS ORDERED: Hydrochlorothiazide 25 MG TAB PO SCH (09:00)
[2022-02-03 11:38] VITALS: BP 186/75; TEMP 97.9
[2022-02-03] MEDS ORDERED: Atorvastatin Calcium 20 MG TAB PO SCH (21:00)
== END 2022-02-03 14:12 | disposition home or self-care (01) ==
LOC: ERS 15:36 → 2SW 18:24
PROVIDERS: ADMIT Internal Medicine; ATTEND Internal Medicine
DX: R07.89 Other chest pain (principal); R77.8 Other specified abnormalities of plasma proteins; E78.5 Hyperlipidemia, unspecified; I12.9 Hypertensive chronic kidney disease with stage 1 through stage 4 chronic kidney disease, or unspecified chronic kidney disease; N18.30 Chronic kidney disease, stage 3 unspecified; E78.00 Pure hypercholesterolemia, unspecified; Z86.12 Personal history of poliomyelitis; Z79.899 Other long term (current) drug therapy; Z88.5 Allergy status to narcotic agent; Z91.041 Radiographic dye allergy status; Z20.822 Contact with and (suspected) exposure to COVID-19
CPT/HCPCS: 71045; 78452; 80048; 80053; 80061; 82553; 82962; 83880; 84484 ×2; 85025; 93005; 93017; 99285; A9500; G0378 ×3; U0003; U0005; 36415; 36416; J1644; J2785

== ENCOUNTER 2022-06-30 21:58 | Inpatient (IN) | payer MEDICARE, BC ==
[2022-06-30] MEDS ORDERED: Dexamethasone 10 MG/ML VIAL ONE (22:23)
[2022-06-30] MEDS ORDERED: Succinylcholine 200 MG/10 ml SYRINGE FS ONE (22:31)
[2022-06-30 22:45] LABS: Hemoglobin 13.3 g/dL (14.0-18.0); Mean Corpuscular HGB CONC 32.2 g/dL (32.0-36.0); Mean Corpuscular Hemoglobin 30.9 pg (27.0-31.0); Mean Corpuscular Volume 96.2 fl (78.0-98.0); Mean Platelet Volume 8.5 fL (7.4-10.4); Platelet Count 180 10x3/uL (130-400); RBC Distribution Width 12.4 % (11.5-14.5); Red Blood Cell (RBC) Count 4.29 mill/uL (4.70-6.10); White Blood Cell (WBC) Count 8.3 10x3/uL (4.8-10.8)
[2022-06-30 23:03] LABS: ALT (SGPT) 24 U/L (8-55); AST (SGOT) 34 U/L (5-34); Alkaline Phosphatase 72 U/L (40-110); Anion Gap 15 mmol/L (10-20); BUN (Urea Nitrogen) 23 mg/dL (8.4-25.7); Bilirubin, Total 0.7 mg/dL (0.2-1.2); CRP (Inflammatory) 1.37 mg/dL (= or < 0.5); Calc. Creatinine Clearance 0 mL/min (70-130); Calcium 9.3 mg/dL (7.8-10.44); Carbon Dioxide 25 mmol/L (23-31); Chloride 101 mmol/L (98-107); Estimated GFR 49; Globulin 3.1 g/dL (2.4-3.5); Glucose 106 mg/dL (83-110); Potassium 3.8 mmol/L (3.5-5.1); Protein, Total 7.1 g/dL (5.8-8.1); Sodium 137 mmol/L (136-145)
[2022-06-30] MEDS ORDERED: Lorazepam 1 MG TAB ONE (23:09)
[2022-06-30 23:20] LABS: Band 7 % (5-11); Lymphocytes 13 % (21-51); MDiff Complete? YES; Monocytes 10 % (0-10); Neutrophil 69 % (42-75); Platelet Morphology Comment Appears Adequate; RBC Morphology Normal; Reactive Lymphocytes 1 % (0-10)
[2022-06-30] MEDS ORDERED: Oxymetazoline HCl 0.05% (30 ML BOT) ONE (23:37)
[2022-07-01] MEDS ORDERED: Furosemide 40 MG/4 ML VIAL ONE (00:04)
[2022-07-01 00:27] LABS: Actual Bicarbonate (HCO3a) 25.2 mEq/L (22-28); Analyzer IN Cardio ER; Base Excess (BEa) -6.6 mEq/L (-2.0 to +3.0); Calcium, Ionized (arterial) 1.18 mmol/L (1.12-1.30); Carboxyhemoglobin (COHb) 0.3 gm% (0.0-3.0); Hemoglobin (Hb) 17.2 g/dL (14.0-18.0); O2 Tension (PaO2), arterial 79.5 mmHg (> 70.0); Potassium - ABG Lab 4.03 mmol/L (3.70-5.30)
[2022-07-01 00:30] LABS: ALV-art Gradient 248.925 mmHg (0-20); CO2 Tension 79.5 mmHg (35.0-45.0); Puncture Site LRA; pH, Arterial 7.12 (7.35-7.45)
[2022-07-01 01:20] LABS: Analyzer IN Cardio ER; Base Excess (BEa) -7.7 mEq/L (-2.0 to +3.0); Calcium, Ionized (arterial) 1.17 mmol/L (1.12-1.30); Carboxyhemoglobin (COHb) 0.1 gm% (0.0-3.0); Hemoglobin (Hb) 16.9 g/dL (14.0-18.0); Potassium - ABG Lab 4.55 mmol/L (3.70-5.30)
[2022-07-01 01:25] LABS: CO2 Tension 97.6 mmHg (35.0-45.0); pH, Arterial 7.04 (7.35-7.45)
[2022-07-01 01:26] LABS: Puncture Site RRA
[2022-07-01] MEDS ORDERED: Ondansetron PF 4 MG/2 ML Vial IVP PRN (01:35)
[2022-07-01] MEDS ORDERED: Acetaminophen 325 MG TAB PO PRN (01:35)
[2022-07-01] MEDS ORDERED: Acetaminophen 650 MG Suppository PR PRN (01:35)
[2022-07-01] MEDS ORDERED: Ondansetron ODT 4 MG TAB PO PRN (01:35)
[2022-07-01] MEDS ORDERED: Benzonatate 100 MG CAP PO PRN (01:35)
[2022-07-01] MEDS ORDERED: Ventilator Sedation Protocol 1 EACH FS ONE (03:08)
[2022-07-01] MEDS ORDERED: Fentanyl BOLUS 250 ML IVPB PRN (03:15)
[2022-07-01] MEDS ORDERED: Propofol BOLUS 1,000 MG/100 ML VIAL IV PRN (03:15)
[2022-07-01] MEDS ORDERED: DISCONTINUE PREVIOUS NARCOTIC PAIN MEDICATIONS AND BENZODIAZEPINES FS SCH (03:15)
[2022-07-01] MEDS ORDERED: Propofol 1,000 MG/100 ML VIAL IV PRN (03:15)
[2022-07-01] MEDS ORDERED: Midazolam HCl 2 mg/2 ml Vial SLOW IVP PRN (03:15)
[2022-07-01] MEDS ORDERED: Morphine 4 MG/ML VIAL SLOW IVP PRN (03:15)
[2022-07-01] MEDS ORDERED: Dextrose 5% in Water 1,000 ML IV PRN (03:24)
[2022-07-01] MEDS ORDERED: Dextrose 50% Abboject 50 ML SYRINGE SLOW IVP PRN (03:24)
[2022-07-01 03:41] LABS: Actual Bicarbonate (HCO3a) 24.2 mEq/L (22-28); Base Excess (BEa) -4.3 mEq/L (-2.0 to +3.0); CO2 Tension 58.4 mmHg (35.0-45.0); Calcium, Ionized (arterial) 1.13 mmol/L (1.12-1.30); Carboxyhemoglobin (COHb) 0.4 gm% (0.0-3.0); Hemoglobin (Hb) 15.7 g/dL (14.0-18.0); Potassium - ABG Lab 4.59 mmol/L (3.70-5.30); pH, Arterial 7.24 (7.35-7.45)
[2022-07-01 03:43] LABS: O2 Tension (PaO2), arterial 54.8 mmHg (> 70.0)
[2022-07-01 03:46] LABS: Puncture Site LBA
[2022-07-01] MEDS ORDERED: NOREPINEPHRINE 8 MG/250 ML-D5W 250 ML ONE (04:32)
[2022-07-01] MEDS ORDERED: ABX IVPB PRN (04:38)
[2022-07-01] MEDS ORDERED: Vancomycin 1 GM in Premix Bag 1 BAG IVPB SCH (04:45)
[2022-07-01] MEDS ORDERED: NOREPINEPHRINE 8 MG/250 ML-D5W 250 ML IVPB SCH (04:45)
[2022-07-01] MEDS: Enoxaparin Sodium 40 MG/0.4 ML SYRINGE SC SCH ×2 (04:46→15:49)
[2022-07-01] MEDS: Sodium Chloride 0.9% 1,000 ML IV SCH ×2 (04:46→14:51)
[2022-07-01] MEDS: Cefepime 2 GM in Sodium Chloride 0.9% 100 ML IVPB SCH ×2 (05:05→17:41)
[2022-07-01] MEDS: HumaLOG 300 UNITS/3 ML VIAL SC PRN ×3 (05:47→18:20)
[2022-07-01 05:53] LABS: Actual Bicarbonate (HCO3a) 25.3 mEq/L (22-28); Analyzer IN Cardio ER; Base Excess (BEa) -6.4 mEq/L (-2.0 to +3.0); Calcium, Ionized (arterial) 1.15 mmol/L (1.12-1.30); Carboxyhemoglobin (COHb) 0.2 gm% (0.0-3.0); Hemoglobin (Hb) 16.9 g/dL (14.0-18.0); O2 Tension (PaO2), arterial 68.9 mmHg (> 70.0); Potassium - ABG Lab 4.39 mmol/L (3.70-5.30)
[2022-07-01 05:54] LABS: CO2 Tension 79.7 mmHg (35.0-45.0); pH, Arterial 7.12 (7.35-7.45)
[2022-07-01 05:55] LABS: ALV-art Gradient 259.275 mmHg (0-20); Puncture Site LRA
[2022-07-01] MEDS: VANCOMYCIN 2 GRAM/500 ML BAG 2 GM in Premix Bag 1 BAG IVPB SCH (06:09)
[2022-07-01 07:09] LABS: SARS-CoV-2 NAA Rapid Test DETECTED (NotDetected)
[2022-07-01 07:22] LABS: Actual Bicarbonate (HCO3v) 21 mEq/L (22-28); Base Excess -4.4 mEq/L (-2.0 to +3.0); Calcium, Ionized (venous) 0.97 mmol/L (1.16-1.32); Chloride (VBG) 103 mmol/L (98-106); Hemoglobin (Hb) 14.9 g/dL (12.6-17.4); Potassium (VBG) 4.62 mmol/L (3.70-5.30); Sodium 133.9 mmol/L (133-146); pH (venous) 7.34 (7.32-7.43)
[2022-07-01] MEDS: Albuterol 200 PUFF (6.7GM INHALER) INH SCH ×3 (07:36→19:04)
[2022-07-01 08:02] LABS: Anion Gap 16 mmol/L (10-20); BUN (Urea Nitrogen) 27 mg/dL (8.4-25.7); CRP (Inflammatory) 1.36 mg/dL (= or < 0.5); Calc. Creatinine Clearance 46 mL/min (70-130); Calcium 8.1 mg/dL (7.8-10.44); Carbon Dioxide 22 mmol/L (23-31); Chloride 103 mmol/L (98-107); Estimated GFR 37; Glucose 199 mg/dL (83-110); Potassium 4.6 mmol/L (3.5-5.1); Sodium 136 mmol/L (136-145)
[2022-07-01 08:29] LABS: Hemoglobin 13.9 g/dL (14.0-18.0); Mean Corpuscular HGB CONC 31.6 g/dL (32.0-36.0); Mean Corpuscular Hemoglobin 30.9 pg (27.0-31.0); Mean Corpuscular Volume 97.6 fl (78.0-98.0); Mean Platelet Volume 9.6 fL (7.4-10.4); Platelet Count 252 10x3/uL (130-400); RBC Distribution Width 12.5 % (11.5-14.5); Red Blood Cell (RBC) Count 4.49 mill/uL (4.70-6.10); White Blood Cell (WBC) Count 18.5 10x3/uL (4.8-10.8)
[2022-07-01 08:30] LABS: #Lymphocytes 0.6 thou/uL (1.20-3.40); #Monocytes 0.9 thou/uL (0.11-0.59); %Eosinophils 0.1 % (0.0-10.0); %Lymphocytes 3.1 % (21.0-51.0); %Monocytes 4.8 % (0.0-10.0); %Neutrophils 91.9 % (42.0-75.0)
[2022-07-01] MEDS ORDERED: REMDESIVIR 200 MG in Sodium Chloride 0.9% 250 ML 210 ML IV SCH (09:00)
[2022-07-01] MEDS: Pantoprazole 40 MG VIAL IVP SCH (09:00)
[2022-07-01] MEDS ORDERED: Enoxaparin Sodium 40 MG/0.4 ML SYRINGE SC SCH (09:00)
[2022-07-01] MEDS ORDERED: Pantoprazole 40 MG VIAL IVP SCH (09:00)
[2022-07-01] MEDS ORDERED: Dexamethasone 4 mg/ml Vial SLOW IVP SCH (09:00)
[2022-07-01] MEDS: Dexamethasone 4 mg/ml Vial SLOW IVP SCH ×2 (09:45→20:40)
[2022-07-01] MEDS: Cholecalciferol (Vitamin D3) 400 UNITS TAB PO SCH (09:46)
[2022-07-01] MEDS: Zinc Sulfate 220 MG CAP PO SCH (09:46)
[2022-07-01] MEDS: Ascorbic Acid 500 mg Chewable Tablet PO SCH (09:46)
[2022-07-01 12:54] LABS: Troponin I 2.502 ng/mL (< 0.028)
[2022-07-01] MEDS ORDERED: Fentanyl CADD 100 ML ONE (18:43)
[2022-07-01] MEDS: Fentanyl CADD 100 ML IV SCH (18:48)
[2022-07-02] MEDS: Albuterol 200 PUFF (6.7GM INHALER) INH SCH ×4 (00:26→18:45)
[2022-07-02] MEDS: Enoxaparin Sodium 40 MG/0.4 ML SYRINGE SC SCH (03:53)
[2022-07-02] MEDS: Sodium Chloride 0.9% 1,000 ML IV SCH ×4 (03:55→22:38)
[2022-07-02] MEDS: Cefepime 2 GM in Sodium Chloride 0.9% 100 ML IVPB SCH ×2 (04:07→21:19)
[2022-07-02 04:41] LABS: ALT (SGPT) 16 U/L (8-55); AST (SGOT) 24 U/L (5-34); Albumin 2.8 g/dL (3.4-4.8); Alkaline Phosphatase 48 U/L (40-110); Bilirubin, Direct 0.2 mg/dL (0.1-0.3); Bilirubin, Total 0.5 mg/dL (0.2-1.2); Protein, Total 5.2 g/dL (5.8-8.1)
[2022-07-02] MEDS: VANCOMYCIN 2 GRAM/500 ML BAG 2 GM in Premix Bag 1 BAG IVPB SCH (04:46)
[2022-07-02 04:48] LABS: #Lymphocytes 0.8 thou/uL (1.20-3.40); #Monocytes 0.9 thou/uL (0.11-0.59); #Neutrophils 17.7 thou/uL (1.40-6.50); %Basophils 0.2 % (0.0-1.0); %Eosinophils 0.1 % (0.0-10.0); %Lymphocytes 4.2 % (21.0-51.0); %Monocytes 4.6 % (0.0-10.0); %Neutrophils 90.9 % (42.0-75.0); Hemoglobin 12.1 g/dL (14.0-18.0); Mean Corpuscular HGB CONC 32.1 g/dL (32.0-36.0); Mean Corpuscular Hemoglobin 30.6 pg (27.0-31.0); Mean Corpuscular Volume 95.4 fl (78.0-98.0); Mean Platelet Volume 9.4 fL (7.4-10.4); Platelet Count 163 10x3/uL (130-400); RBC Distribution Width 12.4 % (11.5-14.5); Red Blood Cell (RBC) Count 3.95 mill/uL (4.70-6.10); White Blood Cell (WBC) Count 19.5 10x3/uL (4.8-10.8)
[2022-07-02 05:07] LABS: Anion Gap 12 mmol/L (10-20); BUN (Urea Nitrogen) 30 mg/dL (8.4-25.7); Calc. Creatinine Clearance 66 mL/min (70-130); Calcium 7.2 mg/dL (7.8-10.44); Carbon Dioxide 20 mmol/L (23-31); Chloride 109 mmol/L (98-107); Estimated GFR 54; Glucose 144 mg/dL (83-110); Potassium 3.4 mmol/L (3.5-5.1); Sodium 138 mmol/L (136-145)
[2022-07-02] MEDS ORDERED: Fentanyl CADD 100 ML ONE (07:19)
[2022-07-02] MEDS: Fentanyl CADD 100 ML IV SCH (07:49)
[2022-07-02 07:54] LABS: Base Excess (BEa) -2.1 mEq/L (-2.0 to +3.0); Calcium, Ionized (arterial) 1.02 mmol/L (1.12-1.30); Carboxyhemoglobin (COHb) 0.3 gm% (0.0-3.0); Hemoglobin (Hb) 16.1 g/dL (14.0-18.0); O2 Tension (PaO2), arterial 175.9 mmHg (> 70.0); Potassium - ABG Lab 3.65 mmol/L (3.70-5.30)
[2022-07-02 08:50] LABS: CO2 Tension 24.7 mmHg (35.0-45.0); Puncture Site RRA
[2022-07-02 08:51] LABS: ALV-art Gradient 78.425 mmHg (0-20)
[2022-07-02] MEDS ORDERED: REMDESIVIR 100 MG in Sodium Chloride 0.9% 250 ML 230 ML IV SCH (09:00)
[2022-07-02] MEDS: Zinc Sulfate 220 MG CAP PO SCH ×2 (09:59→11:56)
[2022-07-02] MEDS: Ascorbic Acid 500 mg Chewable Tablet PO SCH ×2 (09:59→11:55)
[2022-07-02] MEDS: Cholecalciferol (Vitamin D3) 400 UNITS TAB PO SCH ×2 (09:59→11:56)
[2022-07-02] MEDS ORDERED: Aspirin 81 mg Enteric Coated Tablet PER TUBE SCH (10:30)
[2022-07-02] MEDS ORDERED: Enoxaparin Sodium 60 MG/0.6 ML SYRINGE SC SCH (10:45)
[2022-07-02] MEDS: Pantoprazole 40 MG VIAL IVP SCH (10:54)
[2022-07-02] MEDS: Dexamethasone 4 mg/ml Vial SLOW IVP SCH ×2 (10:55→21:19)
[2022-07-02] MEDS: Enoxaparin Sodium 100 MG/ML SYRINGE SC SCH (21:20)
[2022-07-03] MEDS: Albuterol 200 PUFF (6.7GM INHALER) INH SCH ×4 (01:35→18:27)
[2022-07-03] MEDS ORDERED: Albuterol 200 PUFF (6.7GM INHALER) INH PRN (04:28)
[2022-07-03] MEDS ORDERED: Guaifenesin DM 100-10/5 ML UDCUP PO PRN (04:35)
[2022-07-03] MEDS: Cefepime 2 GM in Sodium Chloride 0.9% 100 ML IVPB SCH ×2 (04:53→16:51)
[2022-07-03 05:06] LABS: ALT (SGPT) 23 U/L (8-55); AST (SGOT) 53 U/L (5-34); Albumin 3.5 g/dL (3.4-4.8); Alkaline Phosphatase 61 U/L (40-110); Anion Gap 15 mmol/L (10-20); BUN (Urea Nitrogen) 41 mg/dL (8.4-25.7); Bilirubin, Direct 0.2 mg/dL (0.1-0.3); Bilirubin, Total 0.4 mg/dL (0.2-1.2); Calc. Creatinine Clearance 63 mL/min (70-130); Carbon Dioxide 22 mmol/L (23-31); Chloride 106 mmol/L (98-107); Estimated GFR 51; Glucose 155 mg/dL (83-110); Potassium 3.9 mmol/L (3.5-5.1); Protein, Total 6.7 g/dL (5.8-8.1); Sodium 139 mmol/L (136-145)
[2022-07-03 05:37] LABS: Band 2 % (5-11); Hemoglobin 13.6 g/dL (14.0-18.0); Hypochromia SLIGHT = 6-15 cells (100X) (0-5/hpf); Lymphocytes 5 % (21-51); MDiff Complete? YES; Macrocytosis SLIGHT = 6-15 cells (100X) (0-5/hpf); Mean Corpuscular HGB CONC 30.6 g/dL (32.0-36.0); Mean Corpuscular Hemoglobin 30.1 pg (27.0-31.0); Mean Corpuscular Volume 98.3 fl (78.0-98.0); Mean Platelet Volume 10.6 fL (7.4-10.4); Metamyelocyte 1 % (0-0); Monocytes 7 % (0-10); Neutrophil 85 % (42-75); Ovalocytes SLIGHT = 2-5 cells (100X) (0-1/hpf); Platelet Count 206 10x3/uL (130-400); Platelet Morphology Comment Appears Adequate; Polychromasia SLIGHT = 2-3 cells (100X) (0-2/hpf); RBC Distribution Width 12.7 % (11.5-14.5); Red Blood Cell (RBC) Count 4.52 mill/uL (4.70-6.10); White Blood Cell (WBC) Count 29.4 10x3/uL (4.8-10.8)
[2022-07-03 06:17] LABS: Vancomycin, Trough 17.9 ug/mL
[2022-07-03] MEDS: Sodium Chloride 0.9% 1,000 ML IV SCH ×2 (07:22→09:05)
[2022-07-03] MEDS: VANCOMYCIN 2 GRAM/500 ML BAG 2 GM in Premix Bag 1 BAG IVPB SCH (07:50)
[2022-07-03] MEDS: Ascorbic Acid 500 mg Chewable Tablet PO SCH (08:34)
[2022-07-03] MEDS: Aspirin 81 mg Enteric Coated Tablet PER TUBE SCH (08:35)
[2022-07-03] MEDS: Zinc Sulfate 220 MG CAP PO SCH (08:35)
[2022-07-03] MEDS: Cholecalciferol (Vitamin D3) 400 UNITS TAB PO SCH (08:35)
[2022-07-03] MEDS ORDERED: Haloperidol Lactate 5 MG/ML VIAL ONE (08:48)
[2022-07-03] MEDS ORDERED: Haloperidol Lactate 5 MG/ML VIAL SLOW IVP SCH (09:00)
[2022-07-03] MEDS: Dexamethasone 4 mg/ml Vial SLOW IVP SCH ×2 (10:00→20:01)
[2022-07-03] MEDS: Pantoprazole 40 MG VIAL IVP SCH (10:00)
[2022-07-03] MEDS: Enoxaparin Sodium 100 MG/ML SYRINGE SC SCH ×2 (10:00→20:01)
[2022-07-03] MEDS ORDERED: Furosemide 20 MG/2 ML VIAL SLOW IVP SCH (11:00)
[2022-07-03] MEDS: Ipratropium Oral Inhaler INH SCH ×4 (14:43→18:46)
[2022-07-04] MEDS: Albuterol 200 PUFF (6.7GM INHALER) INH SCH ×4 (02:29→19:09)
[2022-07-04] MEDS: Sodium Chloride 0.9% 1,000 ML IV SCH (04:05)
[2022-07-04] MEDS: Cefepime 2 GM in Sodium Chloride 0.9% 100 ML IVPB SCH ×2 (04:05→16:08)
[2022-07-04 04:49] LABS: ALT (SGPT) 24 U/L (8-55); AST (SGOT) 33 U/L (5-34); Albumin 3.3 g/dL (3.4-4.8); Alkaline Phosphatase 49 U/L (40-110); Bilirubin, Direct 0.3 mg/dL (0.1-0.3); Bilirubin, Total 0.6 mg/dL (0.2-1.2); Protein, Total 6.4 g/dL (5.8-8.1)
[2022-07-04] MEDS: VANCOMYCIN 2 GRAM/500 ML BAG 2 GM in Premix Bag 1 BAG IVPB SCH (05:13)
[2022-07-04] MEDS: Ipratropium Oral Inhaler INH SCH ×4 (07:31→19:09)
[2022-07-04] MEDS: Dexamethasone 4 mg/ml Vial SLOW IVP SCH ×2 (08:29→20:44)
[2022-07-04] MEDS: Pantoprazole 40 MG VIAL IVP SCH (08:30)
[2022-07-04] MEDS: Enoxaparin Sodium 100 MG/ML SYRINGE SC SCH (08:30)
[2022-07-04] MEDS: Cholecalciferol (Vitamin D3) 400 UNITS TAB PO SCH (08:42)
[2022-07-04] MEDS: Aspirin 81 mg Enteric Coated Tablet PER TUBE SCH (08:42)
[2022-07-04] MEDS: Ascorbic Acid 500 mg Chewable Tablet PO SCH (08:42)
[2022-07-04] MEDS: Zinc Sulfate 220 MG CAP PO SCH (08:43)
[2022-07-04] MEDS ORDERED: BARICITINIB 2 MG TAB PO SCH (10:30)
[2022-07-04] MEDS: Enoxaparin Sodium 40 MG/0.4 ML SYRINGE SC SCH (20:45)
[2022-07-05] MEDS: Ipratropium Oral Inhaler INH SCH ×4 (00:51→19:23)
[2022-07-05] MEDS: Albuterol 200 PUFF (6.7GM INHALER) INH SCH ×4 (00:51→19:23)
[2022-07-05] MEDS: Sodium Chloride 0.9% 1,000 ML IV SCH ×2 (05:00→21:19)
[2022-07-05] MEDS: Cefepime 2 GM in Sodium Chloride 0.9% 100 ML IVPB SCH ×2 (05:00→18:01)
[2022-07-05 05:19] LABS: #Lymphocytes 0.3 thou/uL (1.20-3.40); #Monocytes 0.8 thou/uL (0.11-0.59); #Neutrophils 12.5 thou/uL (1.40-6.50); %Eosinophils 0.1 % (0.0-10.0); %Lymphocytes 2.3 % (21.0-51.0); %Monocytes 6.1 % (0.0-10.0); %Neutrophils 91.5 % (42.0-75.0); Hemoglobin 12.9 g/dL (14.0-18.0); Mean Corpuscular HGB CONC 32.5 g/dL (32.0-36.0); Mean Corpuscular Hemoglobin 31.9 pg (27.0-31.0); Mean Corpuscular Volume 98.1 fl (78.0-98.0); Mean Platelet Volume 11.4 fL (7.4-10.4); Platelet Count 127 10x3/uL (130-400); RBC Distribution Width 12.6 % (11.5-14.5); Red Blood Cell (RBC) Count 4.04 mill/uL (4.70-6.10); White Blood Cell (WBC) Count 13.6 10x3/uL (4.8-10.8)
[2022-07-05 05:43] LABS: Vancomycin, Trough 30.5 ug/mL
[2022-07-05 05:46] LABS: ALT (SGPT) 21 U/L (8-55); AST (SGOT) 19 U/L (5-34); Albumin 3.1 g/dL (3.4-4.8); Alkaline Phosphatase 47 U/L (40-110); Anion Gap 10 mmol/L (10-20); BUN (Urea Nitrogen) 61 mg/dL (8.4-25.7); Bilirubin, Direct 0.2 mg/dL (0.1-0.3); Bilirubin, Total 0.5 mg/dL (0.2-1.2); Calc. Creatinine Clearance 61 mL/min (70-130); Calcium 8.1 mg/dL (7.8-10.44); Carbon Dioxide 25 mmol/L (23-31); Chloride 114 mmol/L (98-107); Estimated GFR 49; Glucose 161 mg/dL (83-110); Potassium 4.1 mmol/L (3.5-5.1); Sodium 145 mmol/L (136-145)
[2022-07-05] MEDS: Pantoprazole 40 MG VIAL IVP SCH (08:17)
[2022-07-05] MEDS: Enoxaparin Sodium 40 MG/0.4 ML SYRINGE SC SCH ×2 (08:17→21:20)
[2022-07-05] MEDS: Dexamethasone 4 mg/ml Vial SLOW IVP SCH ×2 (08:17→21:20)
[2022-07-05] MEDS: BARICITINIB 2 MG TAB PO SCH (09:55)
[2022-07-05] MEDS: Cholecalciferol (Vitamin D3) 400 UNITS TAB PO SCH (09:55)
[2022-07-05] MEDS: Ascorbic Acid 500 mg Chewable Tablet PO SCH (09:55)
[2022-07-05] MEDS: Zinc Sulfate 220 MG CAP PO SCH (09:55)
[2022-07-05] MEDS: Aspirin 81 mg Enteric Coated Tablet PER TUBE SCH (09:55)
[2022-07-05] MEDS: hydrALAZINE 20 MG/ML VIAL SLOW IVP PRN (18:01)
[2022-07-06] MEDS: Albuterol 200 PUFF (6.7GM INHALER) INH SCH ×4 (01:18→19:06)
[2022-07-06] MEDS: Ipratropium Oral Inhaler INH SCH ×4 (01:18→19:06)
[2022-07-06] MEDS: Sodium Chloride 0.9% 1,000 ML IV SCH ×2 (04:31→17:38)
[2022-07-06] MEDS: Cefepime 2 GM in Sodium Chloride 0.9% 100 ML IVPB SCH ×2 (04:34→17:38)
[2022-07-06 05:07] LABS: #Lymphocytes 0.4 thou/uL (1.20-3.40); #Monocytes 0.9 thou/uL (0.11-0.59); #Neutrophils 15.1 thou/uL (1.40-6.50); %Basophils 0.1 % (0.0-1.0); %Eosinophils 0.1 % (0.0-10.0); %Lymphocytes 2.5 % (21.0-51.0); %Monocytes 5.6 % (0.0-10.0); %Neutrophils 91.8 % (42.0-75.0); Hemoglobin 12.4 g/dL (14.0-18.0); Mean Corpuscular HGB CONC 31.9 g/dL (32.0-36.0); Mean Corpuscular Hemoglobin 31.1 pg (27.0-31.0); Mean Corpuscular Volume 97.5 fl (78.0-98.0); Mean Platelet Volume 11.3 fL (7.4-10.4); Platelet Count 128 10x3/uL (130-400); RBC Distribution Width 12.7 % (11.5-14.5); Red Blood Cell (RBC) Count 3.98 mill/uL (4.70-6.10); White Blood Cell (WBC) Count 16.4 10x3/uL (4.8-10.8)
[2022-07-06 05:24] LABS: Anion Gap 11 mmol/L (10-20); BUN (Urea Nitrogen) 75 mg/dL (8.4-25.7); Calc. Creatinine Clearance 57 mL/min (70-130); Calcium 8.3 mg/dL (7.8-10.44); Carbon Dioxide 23 mmol/L (23-31); Chloride 116 mmol/L (98-107); Estimated GFR 45; Glucose 181 mg/dL (83-110); Sodium 146 mmol/L (136-145)
[2022-07-06 05:31] LABS: ALT (SGPT) 23 U/L (8-55); AST (SGOT) 16 U/L (5-34); Alkaline Phosphatase 45 U/L (40-110); Bilirubin, Direct 0.2 mg/dL (0.1-0.3); Bilirubin, Total 0.5 mg/dL (0.2-1.2); Protein, Total 5.9 g/dL (5.8-8.1)
[2022-07-06] MEDS ORDERED: VANCOMYCIN 1.25 GM/250 ML BAG 1.25 GM in Premix Bag 1 BAG IVPB SCH (06:00)
[2022-07-06] MEDS: Dexamethasone 4 mg/ml Vial SLOW IVP SCH ×2 (07:41→20:14)
[2022-07-06] MEDS: Pantoprazole 40 MG VIAL IVP SCH (07:42)
[2022-07-06] MEDS: Enoxaparin Sodium 40 MG/0.4 ML SYRINGE SC SCH ×2 (07:42→20:14)
[2022-07-06] MEDS ORDERED: FLU VACC QS2022-23(65YR UP)/PF 240 MCG/0.7 ML SYRINGE IM ONE (09:00)
[2022-07-06] MEDS: HumaLOG 300 UNITS/3 ML VIAL SC PRN ×3 (10:22→23:24)
[2022-07-06] MEDS: BARICITINIB 2 MG TAB PO SCH (10:42)
[2022-07-06] MEDS: hydrALAZINE 20 MG/ML VIAL SLOW IVP PRN (10:42)
[2022-07-06] MEDS: Ascorbic Acid 500 mg Chewable Tablet PO SCH (10:42)
[2022-07-06] MEDS: Zinc Sulfate 220 MG CAP PO SCH (10:42)
[2022-07-06] MEDS: Cholecalciferol (Vitamin D3) 400 UNITS TAB PO SCH (10:43)
[2022-07-06] MEDS: Aspirin 81 mg Enteric Coated Tablet PER TUBE SCH (12:17)
[2022-07-07] MEDS: hydrALAZINE 20 MG/ML VIAL SLOW IVP PRN ×2 (00:11→08:36)
[2022-07-07] MEDS: Albuterol 200 PUFF (6.7GM INHALER) INH SCH ×4 (02:36→18:31)
[2022-07-07] MEDS: Ipratropium Oral Inhaler INH SCH ×4 (02:37→18:32)
[2022-07-07 04:35] LABS: #Lymphocytes 0.5 thou/uL (1.20-3.40); #Monocytes 0.9 thou/uL (0.11-0.59); #Neutrophils 15.6 thou/uL (1.40-6.50); %Eosinophils 0.2 % (0.0-10.0); %Monocytes 5.5 % (0.0-10.0); %Neutrophils 91.3 % (42.0-75.0); Mean Corpuscular Hemoglobin 30.1 pg (27.0-31.0); Mean Corpuscular Volume 97.1 fl (78.0-98.0); Mean Platelet Volume 11.7 fL (7.4-10.4); Platelet Count 157 10x3/uL (130-400); Red Blood Cell (RBC) Count 4.32 mill/uL (4.70-6.10); White Blood Cell (WBC) Count 17.1 10x3/uL (4.8-10.8)
[2022-07-07 04:57] LABS: Anion Gap 14 mmol/L (10-20); BUN (Urea Nitrogen) 77 mg/dL (8.4-25.7); Calc. Creatinine Clearance 57 mL/min (70-130); Calcium 8.6 mg/dL (7.8-10.44); Carbon Dioxide 22 mmol/L (23-31); Chloride 121 mmol/L (98-107); Estimated GFR 45; Glucose 181 mg/dL (83-110); Potassium 4.7 mmol/L (3.5-5.1)
[2022-07-07 05:02] LABS: Sodium 152 mmol/L (136-145)
[2022-07-07] MEDS: Cefepime 2 GM in Sodium Chloride 0.9% 100 ML IVPB SCH (05:11)
[2022-07-07] MEDS: Enoxaparin Sodium 40 MG/0.4 ML SYRINGE SC SCH ×2 (07:45→20:23)
[2022-07-07] MEDS: Dexamethasone 4 mg/ml Vial SLOW IVP SCH ×2 (07:46→20:23)
[2022-07-07] MEDS: Pantoprazole 40 MG VIAL IVP SCH (07:46)
[2022-07-07] MEDS: Ascorbic Acid 500 mg Chewable Tablet PO SCH (07:46)
[2022-07-07] MEDS: Aspirin Chewable 81 MG TAB PER TUBE SCH (07:47)
[2022-07-07] MEDS: Zinc Sulfate 220 MG CAP PO SCH (07:47)
[2022-07-07] MEDS: BARICITINIB 2 MG TAB PO SCH (07:47)
[2022-07-07] MEDS: Cholecalciferol (Vitamin D3) 400 UNITS TAB PO SCH (07:47)
[2022-07-07] MEDS ORDERED: Albumin 25% 25 GM/100 ML BOT IVPB SCH (08:30)
[2022-07-07] MEDS ORDERED: Labetalol HCl 100 MG/20 ML VIAL ONE (08:47)
[2022-07-07 08:50] LABS: Magnesium 3.1 mg/dL (1.6-2.6)
[2022-07-07] MEDS: Labetalol HCl 100 MG/20 ML VIAL SLOW IVP PRN ×2 (09:22→20:23)
[2022-07-07] MEDS ORDERED: Furosemide 40 MG/4 ML VIAL SLOW IVP SCH (10:00)
[2022-07-07] MEDS: HumaLOG 300 UNITS/3 ML VIAL SC PRN ×3 (11:35→22:17)
[2022-07-08] MEDS: Albuterol 200 PUFF (6.7GM INHALER) INH SCH ×4 (00:19→18:24)
[2022-07-08] MEDS: Ipratropium Oral Inhaler INH SCH ×4 (00:20→18:24)
[2022-07-08] MEDS: hydrALAZINE 20 MG/ML VIAL SLOW IVP PRN ×2 (00:40→07:34)
[2022-07-08 04:07] LABS: #Lymphocytes 0.3 thou/uL (1.20-3.40); #Monocytes 0.7 thou/uL (0.11-0.59); #Neutrophils 8.8 thou/uL (1.40-6.50); %Basophils 0.3 % (0.0-1.0); %Eosinophils 0.4 % (0.0-10.0); %Monocytes 6.8 % (0.0-10.0); %Neutrophils 89.6 % (42.0-75.0); Hemoglobin 11.6 g/dL (14.0-18.0); Mean Corpuscular HGB CONC 31.8 g/dL (32.0-36.0); Mean Corpuscular Hemoglobin 30.8 pg (27.0-31.0); Mean Platelet Volume 12.4 fL (7.4-10.4); Platelet Count 122 10x3/uL (130-400); RBC Distribution Width 12.9 % (11.5-14.5); Red Blood Cell (RBC) Count 3.75 mill/uL (4.70-6.10); White Blood Cell (WBC) Count 9.8 10x3/uL (4.8-10.8)
[2022-07-08 04:28] LABS: Anion Gap 8 mmol/L (10-20); BUN (Urea Nitrogen) 91 mg/dL (8.4-25.7); Calc. Creatinine Clearance 49 mL/min (70-130); Calcium 8.7 mg/dL (7.8-10.44); Carbon Dioxide 29 mmol/L (23-31); Chloride 122 mmol/L (98-107); Estimated GFR 38; Glucose 240 mg/dL (83-110); Magnesium 3.1 mg/dL (1.6-2.6); Potassium 4.3 mmol/L (3.5-5.1)
[2022-07-08 04:56] LABS: Sodium 155 mmol/L (136-145)
[2022-07-08] MEDS: Dexamethasone 4 mg/ml Vial SLOW IVP SCH ×2 (08:29→21:04)
[2022-07-08] MEDS: Enoxaparin Sodium 40 MG/0.4 ML SYRINGE SC SCH ×2 (08:29→21:03)
[2022-07-08] MEDS: Ascorbic Acid 500 mg Chewable Tablet PO SCH (08:30)
[2022-07-08] MEDS: BARICITINIB 2 MG TAB PO SCH (08:30)
[2022-07-08] MEDS: Cholecalciferol (Vitamin D3) 400 UNITS TAB PO SCH (08:30)
[2022-07-08] MEDS: Zinc Sulfate 220 MG CAP PO SCH (08:30)
[2022-07-08] MEDS: Aspirin Chewable 81 MG TAB PER TUBE SCH (08:30)
[2022-07-08] MEDS: HumaLOG 300 UNITS/3 ML VIAL SC PRN ×2 (11:57→16:54)
[2022-07-08] MEDS: Labetalol HCl 100 MG/20 ML VIAL SLOW IVP PRN (16:55)
[2022-07-08] MEDS: Pantoprazole 40 MG VIAL IVP SCH (18:33)
[2022-07-08 20:10] LABS: Sodium 155 mmol/L (136-145)
[2022-07-09] MEDS: Albuterol 200 PUFF (6.7GM INHALER) INH SCH ×5 (00:26→23:42)
[2022-07-09] MEDS: Ipratropium Oral Inhaler INH SCH ×5 (00:27→23:42)
[2022-07-09] MEDS: Labetalol HCl 100 MG/20 ML VIAL SLOW IVP PRN ×2 (03:17→07:36)
[2022-07-09 04:58] LABS: #Lymphocytes 0.4 thou/uL (1.20-3.40); #Monocytes 0.6 thou/uL (0.11-0.59); #Neutrophils 10.7 thou/uL (1.40-6.50); %Eosinophils 0.4 % (0.0-10.0); %Lymphocytes 3.4 % (21.0-51.0); %Monocytes 5.1 % (0.0-10.0); %Neutrophils 91.1 % (42.0-75.0); Hemoglobin 12.2 g/dL (14.0-18.0); Mean Corpuscular HGB CONC 30.8 g/dL (32.0-36.0); Mean Corpuscular Hemoglobin 30.5 pg (27.0-31.0); Mean Corpuscular Volume 98.8 fl (78.0-98.0); Platelet Count 124 10x3/uL (130-400); White Blood Cell (WBC) Count 11.7 10x3/uL (4.8-10.8)
[2022-07-09 05:05] LABS: ALT (SGPT) 35 U/L (8-55); AST (SGOT) 21 U/L (5-34); Albumin 3.2 g/dL (3.4-4.8); Alkaline Phosphatase 48 U/L (40-110); Anion Gap 13 mmol/L (10-20); BUN (Urea Nitrogen) 93 mg/dL (8.4-25.7); Bilirubin, Direct 0.2 mg/dL (0.1-0.3); Bilirubin, Total 0.6 mg/dL (0.2-1.2); Calc. Creatinine Clearance 48 mL/min (70-130); Calcium 8.9 mg/dL (7.8-10.44); Carbon Dioxide 29 mmol/L (23-31); Chloride 122 mmol/L (98-107); Estimated GFR 37; Glucose 251 mg/dL (83-110); Potassium 4.9 mmol/L (3.5-5.1); Protein, Total 5.9 g/dL (5.8-8.1)
[2022-07-09 05:10] LABS: Sodium 159 mmol/L (136-145)
[2022-07-09] MEDS: HumaLOG 300 UNITS/3 ML VIAL SC PRN ×4 (05:19→21:32)
[2022-07-09] MEDS: Ascorbic Acid 500 mg Chewable Tablet PO SCH (09:26)
[2022-07-09] MEDS: Enoxaparin Sodium 40 MG/0.4 ML SYRINGE SC SCH ×2 (09:27→21:14)
[2022-07-09] MEDS: Cholecalciferol (Vitamin D3) 400 UNITS TAB PO SCH (09:27)
[2022-07-09] MEDS: BARICITINIB 2 MG TAB PO SCH (09:27)
[2022-07-09] MEDS: Aspirin Chewable 81 MG TAB PER TUBE SCH (09:27)
[2022-07-09] MEDS: Dexamethasone 4 mg/ml Vial SLOW IVP SCH (09:27)
[2022-07-09] MEDS: Zinc Sulfate 220 MG CAP PO SCH (09:27)
[2022-07-09] MEDS: Pantoprazole 40 MG VIAL IVP SCH (09:28)
[2022-07-09] MEDS ORDERED: NIFEdipine XL 60 MG TAB PO SCH (10:15)
[2022-07-09] MEDS ORDERED: NIFEdipine 10 MG CAP PO SCH (10:30)
[2022-07-09] MEDS: Dextrose 5% in Water 1,000 ML IV SCH ×3 (10:48→21:13)
[2022-07-09 15:41] LABS: Sodium 155 mmol/L (136-145)
[2022-07-09] MEDS: NIFEdipine 10 MG CAP PO SCH ×2 (16:55→21:13)
[2022-07-09] MEDS: Acetylcysteine 20% 200 MG/ML 30 ML VIAL PER TUBE SCH (19:50)
[2022-07-09] MEDS ORDERED: NIFEdipine XL 30 MG TAB PO SCH (21:00)
[2022-07-09] MEDS: Dexamethasone 4 MG TAB PO SCH (21:13)
[2022-07-09 22:54] LABS: Sodium 149 mmol/L (136-145)
[2022-07-10] MEDS: Acetylcysteine 20% 200 MG/ML 30 ML VIAL PER TUBE SCH ×5 (00:07→23:47)
[2022-07-10] MEDS: Dextrose 5% in Water 1,000 ML IV SCH ×2 (01:08→05:35)
[2022-07-10 04:51] LABS: ALT (SGPT) 103 U/L (8-55); AST (SGOT) 58 U/L (5-34); Albumin 3.1 g/dL (3.4-4.8); Alkaline Phosphatase 50 U/L (40-110); Anion Gap 10 mmol/L (10-20); BUN (Urea Nitrogen) 86 mg/dL (8.4-25.7); Bilirubin, Total 0.8 mg/dL (0.2-1.2); Calc. Creatinine Clearance 53 mL/min (70-130); Calcium 8.4 mg/dL (7.8-10.44); Carbon Dioxide 30 mmol/L (23-31); Chloride 111 mmol/L (98-107); Estimated GFR 43; Globulin 2.4 g/dL (2.4-3.5); Glucose 356 mg/dL (83-110); Magnesium 2.6 mg/dL (1.6-2.6); Phosphorus 3.3 mg/dL (2.3-4.7); Potassium 4.9 mmol/L (3.5-5.1); Protein, Total 5.5 g/dL (5.8-8.1); Sodium 146 mmol/L (136-145)
[2022-07-10] MEDS: HumaLOG 300 UNITS/3 ML VIAL SC PRN ×3 (05:17→16:28)
[2022-07-10] MEDS: Albuterol 200 PUFF (6.7GM INHALER) INH SCH ×3 (07:53→19:25)
[2022-07-10] MEDS: Ipratropium Oral Inhaler INH SCH ×3 (07:53→19:25)
[2022-07-10] MEDS: Pantoprazole 40 MG VIAL IVP SCH (09:18)
[2022-07-10] MEDS: Dexamethasone 4 MG TAB PO SCH ×2 (09:18→21:12)
[2022-07-10] MEDS: Zinc Sulfate 220 MG CAP PO SCH (09:18)
[2022-07-10] MEDS: Ascorbic Acid 500 mg Chewable Tablet PO SCH (09:19)
[2022-07-10] MEDS: Enoxaparin Sodium 40 MG/0.4 ML SYRINGE SC SCH ×2 (09:19→21:12)
[2022-07-10] MEDS: Cholecalciferol (Vitamin D3) 400 UNITS TAB PO SCH (09:19)
[2022-07-10] MEDS: Aspirin Chewable 81 MG TAB PER TUBE SCH (09:19)
[2022-07-10] MEDS: NIFEdipine 10 MG CAP PO SCH ×3 (09:38→21:12)
[2022-07-10 13:06] LABS: Sodium 143 mmol/L (136-145)
[2022-07-10 17:01] LABS: Sodium 146 mmol/L (136-145)
[2022-07-10 20:23] LABS: Sodium 145 mmol/L (136-145)
[2022-07-11] MEDS: Albuterol 200 PUFF (6.7GM INHALER) INH SCH ×4 (01:24→18:20)
[2022-07-11] MEDS: Ipratropium Oral Inhaler INH SCH ×4 (01:24→18:20)
[2022-07-11 05:53] LABS: Anion Gap 12 mmol/L (10-20); BUN (Urea Nitrogen) 77 mg/dL (8.4-25.7); Calc. Creatinine Clearance 57 mL/min (70-130); Calcium 8.5 mg/dL (7.8-10.44); Carbon Dioxide 30 mmol/L (23-31); Chloride 109 mmol/L (98-107); Estimated GFR 46; Glucose 223 mg/dL (83-110); Magnesium 2.5 mg/dL (1.6-2.6); Potassium 5.4 mmol/L (3.5-5.1); Sodium 146 mmol/L (136-145)
[2022-07-11] MEDS: Acetylcysteine 20% 200 MG/ML 30 ML VIAL PER TUBE SCH ×4 (05:54→23:50)
[2022-07-11 05:58] LABS: Phosphorus 4.4 mg/dL (2.3-4.7)
[2022-07-11] MEDS ORDERED: Polyethylene Glycol 3350 17 GM Packet PO PRN (09:09)
[2022-07-11] MEDS: Cholecalciferol (Vitamin D3) 400 UNITS TAB PO SCH (09:44)
[2022-07-11] MEDS: Aspirin Chewable 81 MG TAB PER TUBE SCH (09:44)
[2022-07-11] MEDS: Dexamethasone 4 MG TAB PO SCH ×2 (09:44→22:21)
[2022-07-11] MEDS: Ascorbic Acid 500 mg Chewable Tablet PO SCH (09:44)
[2022-07-11] MEDS: Pantoprazole 40 MG VIAL IVP SCH (09:45)
[2022-07-11] MEDS: Enoxaparin Sodium 40 MG/0.4 ML SYRINGE SC SCH ×2 (09:45→22:21)
[2022-07-11] MEDS: NIFEdipine 10 MG CAP PO SCH ×3 (09:45→22:21)
[2022-07-11] MEDS: Zinc Sulfate 220 MG CAP PO SCH (09:56)
[2022-07-11] MEDS: HumaLOG 300 UNITS/3 ML VIAL SC PRN ×2 (09:57→17:52)
[2022-07-11] MEDS: Polyethylene Glycol 3350 17 GM Packet PO SCH (09:58)
[2022-07-12] MEDS: Albuterol 200 PUFF (6.7GM INHALER) INH SCH ×4 (01:53→22:37)
[2022-07-12] MEDS: Ipratropium Oral Inhaler INH SCH ×4 (01:53→22:37)
[2022-07-12 05:37] LABS: Anion Gap 13 mmol/L (10-20); BUN (Urea Nitrogen) 78 mg/dL (8.4-25.7); Calc. Creatinine Clearance 54 mL/min (70-130); Calcium 8.9 mg/dL (7.8-10.44); Carbon Dioxide 30 mmol/L (23-31); Chloride 110 mmol/L (98-107); Estimated GFR 44; Glucose 272 mg/dL (83-110); Potassium 5.9 mmol/L (3.5-5.1); Sodium 147 mmol/L (136-145)
[2022-07-12 05:38] LABS: Band 2 % (5-11); Hemoglobin 13.2 g/dL (14.0-18.0); Large Platelets SLIGHT; MDiff Complete? YES; Mean Corpuscular HGB CONC 30.7 g/dL (32.0-36.0); Mean Corpuscular Volume 97.7 fl (78.0-98.0); Monocytes 7 % (0-10); Neutrophil 91 % (42-75); Platelet Count 119 10x3/uL (130-400); Platelet Morphology Comment Appears Decreased; RBC Distribution Width 12.4 % (11.5-14.5); RBC Morphology Normal; White Blood Cell (WBC) Count 26.4 10x3/uL (4.8-10.8)
[2022-07-12] MEDS: HumaLOG 300 UNITS/3 ML VIAL SC PRN (06:44)
[2022-07-12] MEDS ORDERED: Polyethylene Glycol 3350 17 GM Packet PO SCH (09:00)
[2022-07-12] MEDS ORDERED: LOKELMA 10 GM PACKET PO SCH (09:45)
[2022-07-12] MEDS: Enoxaparin Sodium 40 MG/0.4 ML SYRINGE SC SCH ×2 (10:15→22:37)
[2022-07-12] MEDS: Ascorbic Acid 500 mg Chewable Tablet PO SCH (10:15)
[2022-07-12] MEDS: Dexamethasone 4 MG TAB PO SCH ×2 (10:15→22:36)
[2022-07-12] MEDS: Zinc Sulfate 220 MG CAP PO SCH (10:15)
[2022-07-12] MEDS: Acetylcysteine 20% 200 MG/ML 30 ML VIAL PER TUBE SCH ×3 (10:15→16:37)
[2022-07-12] MEDS: Cholecalciferol (Vitamin D3) 400 UNITS TAB PO SCH (10:15)
[2022-07-12] MEDS: Aspirin Chewable 81 MG TAB PER TUBE SCH (10:15)
[2022-07-12] MEDS: NIFEdipine 10 MG CAP PO SCH ×3 (10:16→22:36)
[2022-07-12] MEDS: Polyethylene Glycol 3350 17 GM Packet PO SCH (10:16)
[2022-07-12] MEDS: Pantoprazole 40 MG VIAL IVP SCH (10:16)
[2022-07-13] MEDS: Ipratropium Oral Inhaler INH SCH ×4 (00:03→20:31)
[2022-07-13] MEDS: Albuterol 200 PUFF (6.7GM INHALER) INH SCH ×4 (00:03→20:31)
[2022-07-13 00:07] LABS: Anion Gap 15 mmol/L (10-20); BUN (Urea Nitrogen) 75 mg/dL (8.4-25.7); Calc. Creatinine Clearance 61 mL/min (70-130); Carbon Dioxide 26 mmol/L (23-31); Chloride 112 mmol/L (98-107); Potassium 5.6 mmol/L (3.5-5.1); Sodium 147 mmol/L (136-145)
[2022-07-13 00:08] LABS: Calcium 8.7 mg/dL (7.8-10.44); Estimated GFR 50; Glucose 197 mg/dL (83-110)
[2022-07-13] MEDS: HumaLOG 300 UNITS/3 ML VIAL SC PRN (06:14)
[2022-07-13 06:33] LABS: Band 8 % (5-11); Hemoglobin 14.3 g/dL (14.0-18.0); Lymphocytes 4 % (21-51); MDiff Complete? YES; Mean Corpuscular HGB CONC 31.7 g/dL (32.0-36.0); Mean Corpuscular Hemoglobin 30.9 pg (27.0-31.0); Mean Corpuscular Volume 97.5 fl (78.0-98.0); Mean Platelet Volume 13.2 fL (7.4-10.4); Monocytes 7 % (0-10); Neutrophil 81 % (42-75); Platelet Count 91 10x3/uL (130-400); Platelet Morphology Comment Appears Decreased; RBC Distribution Width 12.5 % (11.5-14.5); RBC Morphology Normal; Red Blood Cell (RBC) Count 4.63 mill/uL (4.70-6.10); White Blood Cell (WBC) Count 19.1 10x3/uL (4.8-10.8)
[2022-07-13] MEDS ORDERED: LOKELMA 10 GM PACKET PO SCH ×2 (09:15→21:00)
[2022-07-13] MEDS: Enoxaparin Sodium 40 MG/0.4 ML SYRINGE SC SCH ×3 (10:21→20:18)
[2022-07-13] MEDS: Pantoprazole 40 MG VIAL IVP SCH (10:21)
[2022-07-13] MEDS: Aspirin Chewable 81 MG TAB PER TUBE SCH (10:22)
[2022-07-13] MEDS: NIFEdipine 10 MG CAP PO SCH ×3 (10:22→21:00)
[2022-07-13] MEDS: Dexamethasone 4 MG TAB PO SCH ×2 (10:22→20:18)
[2022-07-13] MEDS: Zinc Sulfate 220 MG CAP PO SCH (10:22)
[2022-07-13] MEDS: Cholecalciferol (Vitamin D3) 400 UNITS TAB PO SCH (10:22)
[2022-07-13] MEDS: Ascorbic Acid 500 mg Chewable Tablet PO SCH (10:22)
[2022-07-13] MEDS: Polyethylene Glycol 3350 17 GM Packet PO SCH (10:23)
[2022-07-13 19:03] LABS: Anion Gap 14 mmol/L (10-20); BUN (Urea Nitrogen) 79 mg/dL (8.4-25.7); Calc. Creatinine Clearance 57 mL/min (70-130); Carbon Dioxide 32 mmol/L (23-31); Chloride 108 mmol/L (98-107); Estimated GFR 46; Glucose 207 mg/dL (83-110); Potassium 5.6 mmol/L (3.5-5.1); Sodium 148 mmol/L (136-145)
[2022-07-14] MEDS: Albuterol 200 PUFF (6.7GM INHALER) INH SCH ×4 (00:27→21:15)
[2022-07-14] MEDS: Ipratropium Oral Inhaler INH SCH ×4 (00:28→21:15)
[2022-07-14 04:33] LABS: Anion Gap 12 mmol/L (10-20); BUN (Urea Nitrogen) 82 mg/dL (8.4-25.7); Calc. Creatinine Clearance 57 mL/min (70-130); Calcium 8.8 mg/dL (7.8-10.44); Carbon Dioxide 32 mmol/L (23-31); Chloride 109 mmol/L (98-107); Estimated GFR 46; Glucose 248 mg/dL (83-110); Potassium 5.6 mmol/L (3.5-5.1); Sodium 147 mmol/L (136-145)
[2022-07-14] MEDS: HumaLOG 300 UNITS/3 ML VIAL SC PRN ×2 (04:45→21:27)
[2022-07-14 04:47] LABS: #Lymphocytes 0.3 thou/uL (1.20-3.40); #Monocytes 1.1 thou/uL (0.11-0.59); #Neutrophils 18.1 thou/uL (1.40-6.50); %Eosinophils 0.1 % (0.0-10.0); %Lymphocytes 1.6 % (21.0-51.0); %Monocytes 5.6 % (0.0-10.0); %Neutrophils 92.7 % (42.0-75.0); Hemoglobin 12.6 g/dL (14.0-18.0); Mean Corpuscular HGB CONC 32.4 g/dL (32.0-36.0); Mean Corpuscular Hemoglobin 31.7 pg (27.0-31.0); Mean Corpuscular Volume 97.7 fl (78.0-98.0); Mean Platelet Volume 12.5 fL (7.4-10.4); Platelet Count 108 10x3/uL (130-400); RBC Distribution Width 12.4 % (11.5-14.5); Red Blood Cell (RBC) Count 3.99 mill/uL (4.70-6.10); White Blood Cell (WBC) Count 19.6 10x3/uL (4.8-10.8)
[2022-07-14] MEDS: Lansoprazole 15 MG/5 ML (BATCHED)UDCUP PER TUBE SCH (09:30)
[2022-07-14] MEDS: Aspirin Chewable 81 MG TAB PER TUBE SCH (09:30)
[2022-07-14] MEDS: Ascorbic Acid 500 mg Chewable Tablet PO SCH (09:31)
[2022-07-14] MEDS: Dexamethasone 4 MG TAB PO SCH (09:31)
[2022-07-14] MEDS: Cholecalciferol (Vitamin D3) 400 UNITS TAB PO SCH (09:31)
[2022-07-14] MEDS: NIFEdipine 10 MG CAP PO SCH ×3 (09:31→21:16)
[2022-07-14] MEDS: Polyethylene Glycol 3350 17 GM Packet PO SCH (09:31)
[2022-07-14] MEDS: Zinc Sulfate 220 MG CAP PO SCH (09:31)
[2022-07-14] MEDS: LOKELMA 10 GM PACKET PO SCH ×3 (09:32→21:16)
[2022-07-14] MEDS: Dextrose 5% in Water 1,000 ML IV SCH (09:49)
[2022-07-14] MEDS: Enoxaparin Sodium 40 MG/0.4 ML SYRINGE SC SCH ×2 (16:40→21:15)
[2022-07-15] MEDS: Ipratropium Oral Inhaler INH SCH ×4 (02:33→21:11)
[2022-07-15] MEDS: Albuterol 200 PUFF (6.7GM INHALER) INH SCH ×4 (02:33→21:10)
[2022-07-15] MEDS: HumaLOG 300 UNITS/3 ML VIAL SC PRN ×3 (05:52→21:56)
[2022-07-15] MEDS: Dextrose 5% in Water 1,000 ML IV SCH ×2 (05:52→23:35)
[2022-07-15 06:14] LABS: #Lymphocytes 0.5 thou/uL (1.20-3.40); #Monocytes 1.3 thou/uL (0.11-0.59); %Basophils 0.1 % (0.0-1.0); %Eosinophils 0.3 % (0.0-10.0); %Lymphocytes 4.2 % (21.0-51.0); %Monocytes 10.9 % (0.0-10.0); %Neutrophils 84.5 % (42.0-75.0); Hemoglobin 11.7 g/dL (14.0-18.0); Mean Corpuscular HGB CONC 30.3 g/dL (32.0-36.0); Mean Corpuscular Hemoglobin 29.3 pg (27.0-31.0); Mean Corpuscular Volume 96.8 fl (78.0-98.0); Platelet Count 96 10x3/uL (130-400); RBC Distribution Width 12.1 % (11.5-14.5); Red Blood Cell (RBC) Count 3.98 mill/uL (4.70-6.10); White Blood Cell (WBC) Count 11.9 10x3/uL (4.8-10.8)
[2022-07-15 06:40] LABS: Anion Gap 13 mmol/L (10-20); BUN (Urea Nitrogen) 73 mg/dL (8.4-25.7); Calc. Creatinine Clearance 67 mL/min (70-130); Calcium 8.6 mg/dL (7.8-10.44); Carbon Dioxide 32 mmol/L (23-31); Chloride 105 mmol/L (98-107); Estimated GFR 57; Glucose 213 mg/dL (83-110); Potassium 4.2 mmol/L (3.5-5.1); Sodium 146 mmol/L (136-145)
[2022-07-15] MEDS: Ascorbic Acid 500 mg Chewable Tablet PO SCH (09:32)
[2022-07-15] MEDS: Zinc Sulfate 220 MG CAP PO SCH (09:33)
[2022-07-15] MEDS: Dexamethasone 4 MG TAB PO SCH (09:33)
[2022-07-15] MEDS: Aspirin Chewable 81 MG TAB PER TUBE SCH (09:33)
[2022-07-15] MEDS: Cholecalciferol (Vitamin D3) 400 UNITS TAB PO SCH (09:33)
[2022-07-15] MEDS: Polyethylene Glycol 3350 17 GM Packet PO SCH (09:34)
[2022-07-15] MEDS: LOKELMA 10 GM PACKET PO SCH (09:34)
[2022-07-15] MEDS: NIFEdipine 10 MG CAP PO SCH ×3 (09:34→21:11)
[2022-07-15] MEDS: Lansoprazole 15 MG/5 ML (BATCHED)UDCUP PER TUBE SCH (09:37)
[2022-07-15] MEDS: Enoxaparin Sodium 40 MG/0.4 ML SYRINGE SC SCH ×2 (09:38→21:11)
[2022-07-16] MEDS: Ipratropium Oral Inhaler INH SCH ×4 (03:13→18:30)
[2022-07-16] MEDS: Albuterol 200 PUFF (6.7GM INHALER) INH SCH ×4 (03:13→18:30)
[2022-07-16 08:56] LABS: Mean Corpuscular HGB CONC 31.5 g/dL (32.0-36.0); Mean Corpuscular Hemoglobin 30.8 pg (27.0-31.0); Mean Corpuscular Volume 97.6 fl (78.0-98.0); RBC Distribution Width 12.2 % (11.5-14.5); White Blood Cell (WBC) Count 12.3 10x3/uL (4.8-10.8)
[2022-07-16] MEDS: Enoxaparin Sodium 40 MG/0.4 ML SYRINGE SC SCH ×2 (09:16→21:57)
[2022-07-16] MEDS: NIFEdipine 10 MG CAP PO SCH ×3 (09:16→21:52)
[2022-07-16] MEDS: Lansoprazole 15 MG/5 ML (BATCHED)UDCUP PER TUBE SCH (09:17)
[2022-07-16] MEDS: Aspirin Chewable 81 MG TAB PER TUBE SCH (09:17)
[2022-07-16] MEDS: Cholecalciferol (Vitamin D3) 400 UNITS TAB PO SCH (09:17)
[2022-07-16] MEDS: Ascorbic Acid 500 mg Chewable Tablet PO SCH (09:17)
[2022-07-16] MEDS: Polyethylene Glycol 3350 17 GM Packet PO SCH (09:18)
[2022-07-16] MEDS: Zinc Sulfate 220 MG CAP PO SCH (09:18)
[2022-07-16] MEDS: Dexamethasone 4 MG TAB PO SCH (09:18)
[2022-07-16 09:19] LABS: #Basophils 0.1 thou/uL (0.0-0.2); #Eosinphils 0.1 thou/uL (0.0-0.7); #Lymphocytes 0.5 thou/uL (1.20-3.40); #Monocytes 1.4 thou/uL (0.11-0.59); #Neutrophils 10.3 thou/uL (1.40-6.50); %Basophils 0.4 % (0.0-1.0); %Eosinophils 0.6 % (0.0-10.0); %Lymphocytes 3.9 % (21.0-51.0); %Monocytes 11.1 % (0.0-10.0); %Neutrophils 83.9 % (42.0-75.0); Mean Platelet Volume 12.7 fL (7.4-10.4); Platelet Count 71 10x3/uL (130-400)
[2022-07-16 12:12] LABS: Calcium 8.5 mg/dL (7.8-10.44); Chloride 101 mmol/L (98-107); Glucose 243 mg/dL (83-110); Potassium 4.1 mmol/L (3.5-5.1); Sodium 140 mmol/L (136-145)
[2022-07-16 12:14] LABS: Anion Gap 10 mmol/L (10-20); Carbon Dioxide 33 mmol/L (23-31)
[2022-07-16 12:16] LABS: Calc. Creatinine Clearance 72 mL/min (70-130); Estimated GFR 63
[2022-07-16 12:17] LABS: BUN (Urea Nitrogen) 61 mg/dL (8.4-25.7)
[2022-07-16] MEDS: HumaLOG 300 UNITS/3 ML VIAL SC PRN (17:26)
[2022-07-17] MEDS: Albuterol 200 PUFF (6.7GM INHALER) INH SCH ×3 (00:44→19:51)
[2022-07-17] MEDS: Ipratropium Oral Inhaler INH SCH ×3 (00:44→19:51)
[2022-07-17 06:56] LABS: #Eosinphils 0.1 thou/uL (0.0-0.7); #Lymphocytes 0.8 thou/uL (1.20-3.40); #Monocytes 1.5 thou/uL (0.11-0.59); #Neutrophils 15.5 thou/uL (1.40-6.50); %Eosinophils 0.3 % (0.0-10.0); %Lymphocytes 4.3 % (21.0-51.0); %Monocytes 8.5 % (0.0-10.0); %Neutrophils 86.9 % (42.0-75.0); Hemoglobin 12.5 g/dL (14.0-18.0); Mean Corpuscular HGB CONC 31.8 g/dL (32.0-36.0); Mean Corpuscular Hemoglobin 30.6 pg (27.0-31.0); Mean Corpuscular Volume 96.3 fl (78.0-98.0); Mean Platelet Volume 12.5 fL (7.4-10.4); Platelet Count 103 10x3/uL (130-400); RBC Distribution Width 12.1 % (11.5-14.5); Red Blood Cell (RBC) Count 4.07 mill/uL (4.70-6.10); White Blood Cell (WBC) Count 17.9 10x3/uL (4.8-10.8)
[2022-07-17 07:14] LABS: Anion Gap 12 mmol/L (10-20); BUN (Urea Nitrogen) 58 mg/dL (8.4-25.7); Calc. Creatinine Clearance 75 mL/min (70-130); Calcium 8.9 mg/dL (7.8-10.44); Carbon Dioxide 31 mmol/L (23-31); Chloride 100 mmol/L (98-107); Estimated GFR 65; Glucose 170 mg/dL (83-110); Potassium 4.3 mmol/L (3.5-5.1); Sodium 139 mmol/L (136-145)
[2022-07-17] MEDS: Dexamethasone 4 MG TAB PO SCH (08:59)
[2022-07-17] MEDS: Enoxaparin Sodium 40 MG/0.4 ML SYRINGE SC SCH ×2 (09:00→21:07)
[2022-07-17] MEDS: Zinc Sulfate 220 MG CAP PO SCH (09:00)
[2022-07-17] MEDS: Cholecalciferol (Vitamin D3) 400 UNITS TAB PO SCH (09:00)
[2022-07-17] MEDS: Aspirin Chewable 81 MG TAB PER TUBE SCH (09:00)
[2022-07-17] MEDS: Ascorbic Acid 500 mg Chewable Tablet PO SCH (09:00)
[2022-07-17] MEDS: Lansoprazole 15 MG/5 ML (BATCHED)UDCUP PER TUBE SCH (09:02)
[2022-07-17] MEDS: Polyethylene Glycol 3350 17 GM Packet PO SCH (09:02)
[2022-07-17] MEDS: NIFEdipine 10 MG CAP PO SCH ×3 (09:02→21:08)
[2022-07-18] MEDS: Ipratropium Oral Inhaler INH SCH ×5 (00:58→19:00)
[2022-07-18] MEDS: Albuterol 200 PUFF (6.7GM INHALER) INH SCH ×5 (00:58→18:59)
[2022-07-18] MEDS: HumaLOG 300 UNITS/3 ML VIAL SC PRN ×3 (05:38→18:03)
[2022-07-18 07:30] LABS: #Eosinphils 0.1 thou/uL (0.0-0.7); #Lymphocytes 0.6 thou/uL (1.20-3.40); #Monocytes 1.3 thou/uL (0.11-0.59); %Basophils 0.2 % (0.0-1.0); %Eosinophils 0.7 % (0.0-10.0); %Lymphocytes 3.7 % (21.0-51.0); %Monocytes 8.4 % (0.0-10.0); Hemoglobin 11.8 g/dL (14.0-18.0); Mean Corpuscular HGB CONC 31.3 g/dL (32.0-36.0); Mean Corpuscular Hemoglobin 30.5 pg (27.0-31.0); Mean Corpuscular Volume 97.3 fl (78.0-98.0); Mean Platelet Volume 12.1 fL (7.4-10.4); Platelet Count 103 10x3/uL (130-400); RBC Distribution Width 12.2 % (11.5-14.5); Red Blood Cell (RBC) Count 3.87 mill/uL (4.70-6.10); White Blood Cell (WBC) Count 14.9 10x3/uL (4.8-10.8)
[2022-07-18 07:37] LABS: Anion Gap 11 mmol/L (10-20); BUN (Urea Nitrogen) 52 mg/dL (8.4-25.7); Calc. Creatinine Clearance 79 mL/min (70-130); Calcium 8.8 mg/dL (7.8-10.44); Carbon Dioxide 33 mmol/L (23-31); Chloride 100 mmol/L (98-107); Estimated GFR 67; Glucose 180 mg/dL (83-110); Potassium 4.5 mmol/L (3.5-5.1); Sodium 139 mmol/L (136-145)
[2022-07-18] MEDS: Dexamethasone 4 MG TAB PO SCH (10:32)
[2022-07-18] MEDS: Cholecalciferol (Vitamin D3) 400 UNITS TAB PO SCH (10:32)
[2022-07-18] MEDS: Ascorbic Acid 500 mg Chewable Tablet PO SCH (10:32)
[2022-07-18] MEDS: Zinc Sulfate 220 MG CAP PO SCH (10:32)
[2022-07-18] MEDS: Enoxaparin Sodium 40 MG/0.4 ML SYRINGE SC SCH ×2 (10:34→19:40)
[2022-07-18] MEDS: Aspirin Chewable 81 MG TAB PER TUBE SCH (10:34)
[2022-07-18] MEDS: Lansoprazole 15 MG/5 ML (BATCHED)UDCUP PER TUBE SCH (10:35)
[2022-07-18] MEDS: Polyethylene Glycol 3350 17 GM Packet PO SCH (10:36)
[2022-07-18] MEDS: NIFEdipine 10 MG CAP PO SCH ×3 (10:36→19:40)
[2022-07-19] MEDS: Albuterol 200 PUFF (6.7GM INHALER) INH SCH ×3 (01:15→14:23)
[2022-07-19] MEDS: Ipratropium Oral Inhaler INH SCH ×4 (01:16→19:26)
[2022-07-19 07:31] LABS: #Eosinphils 0.1 thou/uL (0.0-0.7); #Lymphocytes 0.6 thou/uL (1.20-3.40); #Monocytes 1.1 thou/uL (0.11-0.59); #Neutrophils 13.3 thou/uL (1.40-6.50); %Basophils 0.1 % (0.0-1.0); %Eosinophils 0.7 % (0.0-10.0); %Lymphocytes 4.2 % (21.0-51.0); %Monocytes 7.3 % (0.0-10.0); %Neutrophils 87.8 % (42.0-75.0); Hemoglobin 13.1 g/dL (14.0-18.0); Mean Corpuscular HGB CONC 31.6 g/dL (32.0-36.0); Mean Corpuscular Hemoglobin 30.7 pg (27.0-31.0); Mean Corpuscular Volume 97.1 fl (78.0-98.0); Mean Platelet Volume 12.1 fL (7.4-10.4); Platelet Count 118 10x3/uL (130-400); RBC Distribution Width 12.3 % (11.5-14.5); Red Blood Cell (RBC) Count 4.25 mill/uL (4.70-6.10); White Blood Cell (WBC) Count 15.2 10x3/uL (4.8-10.8)
[2022-07-19 07:47] LABS: Anion Gap 14 mmol/L (10-20); BUN (Urea Nitrogen) 46 mg/dL (8.4-25.7); Calc. Creatinine Clearance 84 mL/min (70-130); Calcium 9.4 mg/dL (7.8-10.44); Carbon Dioxide 30 mmol/L (23-31); Chloride 98 mmol/L (98-107); Estimated GFR 71; Glucose 157 mg/dL (83-110); Potassium 4.5 mmol/L (3.5-5.1); Sodium 137 mmol/L (136-145)
[2022-07-19] MEDS: Cholecalciferol (Vitamin D3) 400 UNITS TAB PO SCH (08:30)
[2022-07-19] MEDS: Aspirin Chewable 81 MG TAB PER TUBE SCH (08:30)
[2022-07-19] MEDS: Ascorbic Acid 500 mg Chewable Tablet PO SCH (08:30)
[2022-07-19] MEDS: Dexamethasone 4 MG TAB PO SCH (08:30)
[2022-07-19] MEDS: Enoxaparin Sodium 40 MG/0.4 ML SYRINGE SC SCH ×2 (08:31→21:40)
[2022-07-19] MEDS: NIFEdipine 10 MG CAP PO SCH ×2 (08:32→16:55)
[2022-07-19] MEDS: Zinc Sulfate 220 MG CAP PO SCH (08:33)
[2022-07-19] MEDS: Polyethylene Glycol 3350 17 GM Packet PO SCH (08:33)
[2022-07-19] MEDS: Lansoprazole 15 MG/5 ML (BATCHED)UDCUP PER TUBE SCH (12:01)
[2022-07-19 15:37] VITALS: BMI 29.6
[2022-07-20] MEDS: Ipratropium Oral Inhaler INH SCH ×4 (00:38→19:06)
[2022-07-20 07:21] LABS: #Eosinphils 0.1 thou/uL (0.0-0.7); #Lymphocytes 0.6 thou/uL (1.20-3.40); #Monocytes 0.9 thou/uL (0.11-0.59); #Neutrophils 11.4 thou/uL (1.40-6.50); %Basophils 0.1 % (0.0-1.0); %Eosinophils 0.6 % (0.0-10.0); %Lymphocytes 4.4 % (21.0-51.0); %Monocytes 7.1 % (0.0-10.0); %Neutrophils 87.8 % (42.0-75.0); Hemoglobin 11.9 g/dL (14.0-18.0); Mean Corpuscular HGB CONC 32.3 g/dL (32.0-36.0); Mean Corpuscular Hemoglobin 31.5 pg (27.0-31.0); Mean Corpuscular Volume 97.6 fl (78.0-98.0); Mean Platelet Volume 11.7 fL (7.4-10.4); Platelet Count 119 10x3/uL (130-400); RBC Distribution Width 12.3 % (11.5-14.5); Red Blood Cell (RBC) Count 3.77 mill/uL (4.70-6.10)
[2022-07-20 07:49] VITALS: TEMP 98.8
[2022-07-20] MEDS: Enoxaparin Sodium 40 MG/0.4 ML SYRINGE SC SCH ×2 (09:09→20:14)
[2022-07-20] MEDS: Aspirin Chewable 81 MG TAB PER TUBE SCH (09:10)
[2022-07-20] MEDS: Polyethylene Glycol 3350 17 GM Packet PO SCH (09:10)
[2022-07-20 20:48] VITALS: BP 169/74
== END 2022-07-20 22:30 | DRG 871 ==
LOC: ERS 21:58 → CCU 07-01 01:35 → IMCU/EMU 07-11 20:03 → T4-B 07-16 21:10
PROVIDERS: ADMIT Student in an Organized Health Care Education/Training Program; ATTEND Hospitalist
PROC: 8E0ZXY6 Isolation (ICD-10-PCS; principal; 2022-07-01)
PROC: 5A1945Z Respiratory Ventilation, 24-96 Consecutive Hours (ICD-10-PCS; 2022-07-01)
PROC: XW033E5 Introduction of Remdesivir Anti-infective into Peripheral Vein, Percutaneous Approach, New Technology Group 5 (ICD-10-PCS; 2022-07-01)
PROC: 0BH17EZ Insertion of Endotracheal Airway into Trachea, Via Natural or Artificial Opening (ICD-10-PCS; 2022-07-01)
PROC: 3E03329 Introduction of Other Anti-infective into Peripheral Vein, Percutaneous Approach (ICD-10-PCS; 2022-07-01)
PROC: 5A09557 Assistance with Respiratory Ventilation, Greater than 96 Consecutive Hours, Continuous Positive Airway Pressure (ICD-10-PCS; 2022-07-03)
PROC: 5A0945A Assistance with Respiratory Ventilation, 24-96 Consecutive Hours, High Flow/Velocity Cannula (ICD-10-PCS; 2022-07-03)
DX: A41.9 Sepsis, unspecified organism (principal); G93.41 Metabolic encephalopathy; U07.1 COVID-19; J12.82 Pneumonia due to coronavirus disease 2019; R65.21 Severe sepsis with septic shock; J80 Acute respiratory distress syndrome; E87.3 Alkalosis; E87.1 Hypo-osmolality and hyponatremia; I5A Non-ischemic myocardial injury (non-traumatic); C64.9 Malignant neoplasm of unspecified kidney, except renal pelvis; J38.00 Paralysis of vocal cords and larynx, unspecified; N18.9 Chronic kidney disease, unspecified; G14 Postpolio syndrome; N18.30 Chronic kidney disease, stage 3 unspecified; E87.8 Other disorders of electrolyte and fluid balance, not elsewhere classified; D69.6 Thrombocytopenia, unspecified; D63.1 Anemia in chronic kidney disease; E87.5 Hyperkalemia; R53.81 Other malaise; R13.12 Dysphagia, oropharyngeal phase; I12.9 Hypertensive chronic kidney disease with stage 1 through stage 4 chronic kidney disease, or unspecified chronic kidney disease; Z91.041 Radiographic dye allergy status; Z79.899 Other long term (current) drug therapy; Z98.890 Other specified postprocedural states
CPT/HCPCS: 31500; 36415; 36416; 36600; 51702; 71045; 74018; 74230; 80048; 80053; 80076; 80202; 82553; 82805; 83605; 83735; 83880; 84100; 84145; 84484; 85025; 85379; 85652; 86140; 87040; 93005; 93010; 94003; 94660; 94664; 96361; 96374; 96375; C9113; J0132; J0360; J0692; J1100; J1630; J1650; J1815; J1940; J2405; J2704; J3010; J3370; J3490; J7050; J7070; J7620; J8540; P9047; U0002

== ENCOUNTER 2024-01-03 23:40 | Emergency (ER) | payer MEDICARE, BC ==
[2024-01-04 01:00] LABS: #Basophils Less than 0.03 10x3/uL (0.0-0.2); %Basophils 0.2 % (0.0-1.0); %Eosinophils 0.9 % (0.0-10.0); %Lymphocytes 12.3 % (21.0-51.0); %Monocytes 8.8 % (0.0-10.0); %Neutrophils 77.4 % (42.0-75.0); Hematocrit 44.4 % (42.0-52.0); Hemoglobin 14.8 g/dL (14.0-18.0); Mean Corpuscular HGB CONC 33.3 g/dL (32.0-36.0); Mean Corpuscular Hemoglobin 30.6 pg (27.0-31.0); Mean Corpuscular Volume 91.7 fL (78.0-98.0); Mean Platelet Volume 10.8 fL (7.4-10.4); Platelet Count 230 10x3/uL (130-400); RBC Distribution Width 13.8 % (11.5-14.5); Red Blood Cell (RBC) Count 4.84 mill/uL (4.70-6.10)
[2024-01-04 01:16] LABS: ALT (SGPT) 10 U/L (8-55); AST (SGOT) 21 U/L (5-34); Alkaline Phosphatase 88 U/L (40-110); Anion Gap 17 mmol/L (10-20); BUN (Urea Nitrogen) 23 mg/dL (8.4-25.7); Bilirubin, Total 0.5 mg/dL (0.2-1.2); Calc. Creatinine Clearance 0 mL/min (70-130); Calcium 10.1 mg/dL (7.8-10.44); Carbon Dioxide 22 mmol/L (23-31); Chloride 103 mmol/L (98-107); Estimated GFR 46; Globulin 3.6 g/dL (2.4-3.5); Glucose 132 mg/dL (83-110); Potassium 3.8 mmol/L (3.5-5.1); Protein, Total 7.6 g/dL (5.8-8.1); Sodium 138 mmol/L (136-145)
[2024-01-04 01:20] LABS: Influenza A by NAA Not Detected (NotDetected); Influenza B by NAA Not Detected (NotDetected); SARS-CoV-2 NAA Rapid Test Not Detected (NotDetected)
== END 2024-01-04 02:06 | disposition home or self-care (01) ==
LOC: ERS 23:40
DX: R06.02 Shortness of breath (principal); R60.9 Edema, unspecified; I10 Essential (primary) hypertension; Z79.899 Other long term (current) drug therapy
CPT/HCPCS: 0240U; 71045; 80053; 83880; 85025; 93005; 36415

== ENCOUNTER 2024-01-05 13:02 | Outpatient (CLI) | payer MEDICARE, BC | END 2024-01-05 13:03 | disposition home or self-care (01) | LOC: BICRAD 13:02 | PROVIDERS: ATTEND Internal Medicine | DX: I50.32 Chronic diastolic (congestive) heart failure (principal) | CPT/HCPCS: 71046 ==

== ENCOUNTER 2025-05-29 09:32 | Outpatient (CLI) | payer MEDICARE, BC | END 2025-05-29 09:33 | disposition home or self-care (01) | LOC: BICMRI 09:32 | PROVIDERS: ATTEND Internal Medicine | DX: R41.3 Other amnesia (principal); I73.9 Peripheral vascular disease, unspecified; R90.82 White matter disease, unspecified | CPT/HCPCS: 70551 ==

== ENCOUNTER 2025-07-08 15:14 | Outpatient (CLI) | payer MEDICARE, BC | END 2025-07-08 15:15 | disposition home or self-care (01) | LOC: BICRAD 15:14 | PROVIDERS: ATTEND Internal Medicine | DX: R05.9 Cough, unspecified (principal) | CPT/HCPCS: 71046 ==

== ENCOUNTER 2025-07-09 07:13 | Emergency (ER) | payer MEDICARE, BC | END 2025-07-09 09:12 | disposition home or self-care (01) | LOC: ERS 07:13 | DX: R05.9 Cough, unspecified (principal); E78.00 Pure hypercholesterolemia, unspecified; I10 Essential (primary) hypertension; Z79.899 Other long term (current) drug therapy | CPT/HCPCS: 71046; 94640 ==